=== PATIENT | female | born 1990 ===

== ENCOUNTER 2021-07-09 19:15 | Inpatient (IN) | payer MEDICAID, SELFPAY ==
--- NOTE | ~2021-07-09 | CT_ITS ---
EXAMINATION: CT ABDOMEN AND PELVIS WITH CONTRAST CLINICAL INFORMATION: Cholecystitis on recent ultrasound. COMPARISON: Abdominal ultrasound dated from 09/08/2021. TECHNIQUE: Multidetector volumetric images were obtained from the superior aspect of the liver through the pubic symphysis following administration 85 mL of Omnipaque 350 intravenous contrast. Sagittal and coronal reformatted images were obtained on the technologist's workstation. Oral contrast: No This CT examination was performed using dose optimization techniques as appropriate, variously including the following: *Automated exposure control *Adjustment of mA and/or kV according to patient size (this includes techniques or standardized protocols for targeted exams where dose is matched to indication/reason for exam; i.e. extremities or head) *Use of iterative reconstruction technique DLP: 431 mGy-cm FINDINGS: LUNG BASES: The visualized lung bases are unremarkable. LIVER, GALLBLADDER, AND BILIARY TREE: The liver is normal in size, shape, and attenuation. No focal hepatic lesion or biliary ductal dilatation is present. There are very small stones layering dependently in the fundus (4:186) which are better seen on recent ultrasound. The gallbladder wall is borderline thickened measuring 3 to 4 mm without significant pericholecystic free fluid or fat stranding. PANCREAS: Unremarkable. SPLEEN: Unremarkable. ADRENAL GLANDS: Unremarkable. KIDNEYS AND URETERS: The kidneys are normal in size, shape, and attenuation. No hydronephrosis, hydroureter, or calculi seen. No perinephric stranding. BLADDER: Unremarkable. GASTROINTESTINAL TRACT: The stomach and the small bowel are nondilated. The appendix is not definitely identified, there are; however, no regional inflammatory changes to suspect acute appendicitis. No evidence of active inflammatory bowel changes or bowel obstruction. ABDOMINAL WALL: No significant hernia is appreciated. LYMPH NODES: Normal. VASCULAR: Unremarkable. PELVIC VISCERA: Trace amount of free fluid is likely physiologic. Functional follicles in both ovaries, left on image 452 and right on image 488 of series 4. OSSEOUS STRUCTURES: Unremarkable. CT/CT abdomen pelvis w con IMPRESSION: 1. Gallbladder stones are best visualized on prior ultrasound. As mentioned on this prior ultrasound, there is borderline gallbladder wall thickening but no significant pericholecystic fluid nor fat stranding. Findings remain equivocal for acute cholecystitis and clinical correlation should be obtained. If indicated, further evaluation with a hepatobiliary nuclear medicine study could be performed. 2. No other acute abnormalities to explain the patient's symptoms.
--- NOTE | ~2021-07-09 | US_ITS ---
EXAMINATION: US ABDOMEN LIMITED CLINICAL INFORMATION: Rule out acute cholecystitis COMPARISON: None TECHNIQUE: Real-time imaging of the right upper quadrant abdominal viscera. FINDINGS: PANCREAS: Normal. LIVER: Normal. The liver is normal in size. The liver contour is normal. Parenchymal echogenicity is normal. No focal hepatic lesion. There is no intrahepatic biliary duct dilatation seen. GALLBLADDER: Echogenic gallstones are seen within the gallbladder. Gallbladder wall is mildly thickened to 3-4 mm. No pericholecystic fluid. The patient does report focal tenderness upon imaging of the gallbladder. COMMON BILE DUCT: Normal in caliber measuring 0.5 cm in diameter. RIGHT KIDNEY: Normal. No hydronephrosis. No renal calculi or focal parenchymal lesions. The kidney measures 9.3 cm in maximum dimension. FREE FLUID: None. US/US abdomen limited IMPRESSION: There are gallstones, mild gallbladder wall thickening, and focal tenderness upon imaging of the gallbladder. This constellation of findings is consistent with acute cholecystitis in the appropriate clinical setting.
--- NOTE | ~2021-07-09 | MR_ITS ---
EXAMINATION: MR ABDOMEN WITHOUT CONTRAST CLINICAL INFORMATION: Elevated LFTs and jaundice. COMPARISON: None TECHNIQUE: MR abdomen is performed without gadolinium contrast. 3-D MRCP images were obtained. FINDINGS: LUNG BASES: The visualized lung bases are unremarkable. LIVER, GALLBLADDER, AND BILIARY TREE: The liver is normal in size, smooth in contour, and normal in signal. No focal hepatic lesion is present. The patient is status post recent cholecystectomy with free fluid and stranding in the gallbladder fossa and right upper quadrant which are likely postsurgical. A discrete organized collection is not identified. Evaluation of 3-D MRCP images is extremely limited due to motion. However, accounting for these limitations, no definite choledocholithiasis is identified. There is no biliary ductal dilatation. Susceptibility artifact in the right upper abdominal wall, likely due to air or clips from recent surgery. PANCREAS: Unremarkable. SPLEEN: Unremarkable. ADRENAL GLANDS: Unremarkable. KIDNEYS AND URETERS: The kidneys are normal in size and shape. No hydronephrosis. No perinephric stranding. GASTROINTESTINAL TRACT: No bowel obstruction. ABDOMINAL WALL: No significant hernia is appreciated. LYMPH NODES: No lymphadenopathy. VASCULAR: Unremarkable. OSSEOUS STRUCTURES: Marrow signal normal. MR/MR MRCP IMPRESSION: 1. Free fluid and stranding in the gallbladder fossa and right upper quadrant, likely from recent cholecystectomy. No definite organized or drainable collection at this time. However, if a bile leak or other postsurgical complication is suspected, correlation with a nuclear medicine study or MR with delayed Eovist images is recommended. 2. No biliary ductal dilatation or choledocholithiasis. This result was discussed with Dr Celaya at 07/11/2021 7:34 PM and it was ascertained that the content of the report was understood at the time of direct communication.
[2021-07-09 19:59] VITALS: BP 100/59; PULSE 84; RESP 17; TEMP 36.2; O2SAT 98; BMI 23.7
[2021-07-09 20:13] LABS: MANUAL DIFF FLAG NO
[2021-07-09 20:15] LABS: Appearance Urine HAZY; Basophils Percent Auto 0.1 % (0-2); Color Urine YELLOW; Eosinophils Absolute Auto 0.1 X10*3/uL (0.0-0.4); Eosinophils Percent Auto 0.7 % (0-4); Glucose Urine UA NEG (NEG); Hematocrit 40.9 % (37.0-47.0); Hemoglobin 13.5 g/dl (12.0-16.0); Imm Gran Abs Auto 0.04 X10*3/uL (0.00-0.03); Imm Gran Pct Auto 0.3 % (0.0-0.4); Leukocyte Esterase Urine 1+ (NEG); Lymphocytes Absolute Auto 2.4 X10*3/uL (1.2-4.9); Lymphocytes Percent Auto 17.4 % (20-40); Mean Corpuscular Hemoglobin 32.5 pg (27.0-33.0); Mean Corpuscular Volume 98.6 fL (80.0-98.0); Mean Platelet Volume 10.6 fL (9.4-12.3); Monocytes Percent Auto 7.3 % (2-11); Neutrophils Absolute Auto 10.2 x10*3/uL (2.0-8.3); Neutrophils Percent Auto 74.2 % (45-73); Nitrite Urine NEG (NEG); PH 7.5 (5.0-8.0); Platelet Count 220 X10*3/uL (160-400); Red Blood Count 4.15 X10*6/uL (4.20-5.50); Red Cell Distribution Width 12.9 % (11.0-16.0); UACC Culture Trigger YES; Urine Blood NEG (NEG); Urine Ketones NEG (NEG); Urine Protein NEG (NEG-TRACE); White Blood Count 13.8 X10*3/uL (4.8-10.8)
[2021-07-09 20:21] LABS: RBC Urine 0 /HPF (0); Squamous Epithelial Cell Urine 1+ /LPF
[2021-07-09 20:22] LABS: Amorphous Sediment Urine 2+ /LPF; Bacteria Urine TRACE /LPF
[2021-07-09 20:35] LABS: Alanine Aminotransferase 231 U/L (0-31); Albumin Level 4.2 g/dL (3.5-5.0); Alkaline Phosphatase 204 U/L (39-117); Anion Gap 12 (12-20); Aspartate Amino Transferase 299 U/L (5-31); Bilirubin Total 0.9 mg/dL (0.0-1.0); Blood Urea Nitrogen 14 mg/dL (9-16); Calcium 9.8 mg/dL (8.4-10.2); Carbon Dioxide 30 mmol/L (22-29); Chloride 101 mmol/L (96-108); Creatinine Clr Calc Pharmacy 89.2; Estimated Glomerular Filt Rate > 60; Glucose Random 160 mg/dL (60-115); Potassium 3.6 mmol/L (3.3-5.1); Sodium 139 mmol/L (135-145); Total Protein 7.1 g/dL (6.5-8.0)
--- NOTE | 2021-07-09 23:16 | ED_ITS ---
HPI - Abdominal Pain General Chief Complaint: Abdominal Pain Stated Complaint: Stomach pain Time Seen by Provider: 07/09/21 22:05 Source: patient Mode of arrival: ambulatory Limitations: language barrier History of Present Illness HPI narrative: 30-year-old female presents with approximately 24 hours of abdominal pain, nausea, and poor p.o. intake. Pain started in the right upper quadrant and radiates to the abdomen diffusely. MD elicited complaint: abdominal pain Pertinent past history: none Onset (ago): day(s) (1) Pain Consistency: constant Location: diffuse and RUQ Severity: severe Pain scale (0-10): 8 Quality: aching Radiation: none Exacerbating factors: eating and movement Relieving factors: nothing Associated symptoms: nausea, anorexia and other (Fatigue) Related Data Patient : No Allergies Allergy/AdvReac Type Severity Reaction Status Date / Time No Known Allergies Allergy Verified 07/09/21 20:02 Review of Systems Review of Systems Constitutional: No Fever, No Chills ENT/Mouth: No Ear Pain, No Hoarseness, No sore throat Eyes: No Eye Pain, No Swelling, No Redness, No Foreign Body Cardiovascular: No Chest Pain, No SOB Respiratory: No Cough, No Dyspnea Gastrointestinal: Positive Nausea, No Vomiting, No Diarrhea, positive abdominal Pain Genitourinary: No Dysuria, No Hematuria Musculoskeletal: No joint pain, No Myalgias, No Joint Swelling Skin: No Skin lacerations, No rash Neuro: No Weakness, No Numbness, No Paresthesias, No Loss of Consciousness, No Dizziness, No Headache Psych: No Anxiety/Panic, No Depression Heme/Lymph: no easy bruising, no Lymphadenopathy Endocrine: No Polyuria, No Polydipsia Yes all other systems are reviewed and are negative [facility] Past Medical History Attestation statement: The following information was validated with the patient. Source: old records reviewed Social History Social History Advance Directives: No Advance Directives Information Provided: Yes Patient : No Physical Exam ED Vital Signs: Vital Signs - 24 hr 07/09/21 19:59 07/09/21 23:26 07/10/21 00:05 Temperature 97.2 F 98.2 F Pulse Rate 84 76 70 Respiratory Rate 17 17 18 Blood Pressure 100/59 L 100/60 95/61 Pulse Oximetry 98 98 99 BMI result Body Mass Index 23.7 Appearance: Alert. Oriented X3. Moderate distress. Eyes: Pupils equal, round and reactive to light. Sclera nonicteric. ENT: Pharynx normal. Moist mucous membranes. Neck: Normal inspection. Neck supple. CVS: Normal heart rate and rhythm. Pulses normal. Respiratory: No respiratory distress. Breath sounds normal. Abdomen: Soft and positive Mata's. Negative McBurney's. No rigidity or distention noted. Diffusely tender. Skin: Skin warm and dry. Normal skin color. Normal skin turgor. Extremities: No lower extremity edema. Gait well-balanced well coordinated. Neuro: No motor deficit. No sensory deficit. Cranial nerves 2-12 intact. Course Course Course Narrative: 30-year-old female presents with 1 day of abdominal pain, nausea and poor p.o. intake. Labs and abdominal ultrasound completed while patient was in the doctors hospital department waiting room, white count elevated at 13.8, AST 299, ALT 231, alk-phos 204. Urinalysis she indicates leukocyte esterase and white cell count. Abdominal ultrasound indicates cholecystitis without obstructing gallstones. Will order CT scan of abdomen pelvis, add lipase, EKG, and urine . Will order lactic and cultures. Will provide pain management with morphine, antiemetics Zofran, Zosyn IV. Patient will be NPO. 00:[address] Gamble, plan of care is to admit for surgery. Consultations Consultation #1: Tye Time: 00:16 MDM - Abdominal Pain MDM Narrative Medical decision making narrative: Cholecystitis Differential Diagnosis Differential diagnosis: Likely abdominal pain, calculus of kidney and pancreatitis Medical Records Attestation: I reviewed the patient's medical records. Lab Data Attestation: I reviewed the patient's lab results. Result diagrams: 07/09/21 20:09 07/09/21 20:09 Labs: Lab Results 07/09/21 07/09/21 07/09/21 Range/Units 20:09 20:09 20:09 WBC 13.8 H (4.8-10.8) X10*3/uL RBC 4.15 L (4.20-5.50) X10*6/uL Hgb 13.5 (12.0-16.0) g/dl Hct 40.9 (37.0-47.0) % MCV 98.6 H (80.0-98.0) fL MCH 32.5 (27.0-33.0) pg MCHC 33.0 (31.0-35.0) g/dl RDW 12.9 (11.0-16.0) % Plt Count 220 (160-400) X10*3/uL MPV 10.6 (9.4-12.3) fL Immature Gran % (Auto) 0.3 (0.0-0.4) % Neut % (Auto) 74.2 H (45-73) % Lymph % (Auto) 17.4 L (20-40) % [place] % (Auto) 7.3 (2-11) % Eos % (Auto) 0.7 (0-4) % Baso % (Auto) 0.1 (0-2) % Lymph # (Auto) 2.4 (1.2-4.9) X10*3/uL [place] # (Auto) 1.0 (0.1-1.2) X10*3/uL Eos # (Auto) 0.1 (0.0-0.4) X10*3/uL Baso # (Auto) 0.0 (0.0-0.2) X10*3/uL Abs Immat Gran (auto) 0.04 H (0.00-0.03) X10*3/uL Absolute Neuts (auto) 10.2 H (2.0-8.3) x10*3/uL Absolute Nucleated RBC 0.000 (0.0-0.012) X10*3/uL Nucleated RBC % (auto) 0.0 (0.0-0.2) /100WBC Sodium 139 (135-145) mmol/L Potassium 3.6 (3.3-5.1) mmol/L Chloride 101 (96-108) mmol/L Carbon Dioxide 30 H (22-29) mmol/L Anion Gap 12 (12-20) BUN 14 (9-16) mg/dL Creatinine 0.83 (0.5-1.4) mg/dL Estim Creat Clear Calc 89.2 Estimated GFR > 60 Random Glucose 160 H (60-115) mg/dL Calcium 9.8 (8.4-10.2) mg/dL Total Bilirubin 0.9 (0.0-1.0) mg/dL AST 299 H (5-31) U/L ALT 231 H (0-31) U/L Alkaline Phosphatase 204 H (39-117) U/L Total Protein 7.1 (6.5-8.0) g/dL Albumin 4.2 (3.5-5.0) g/dL Lipase 26 (8-78) U/L Urine Color YELLOW Urine Appearance HAZY Urine pH 7.5 (5.0-8.0) Ur Specific [place] 1.010 (1.005-1.025) Urine Protein NEG (NEG-TRACE) MG/DL Urine Glucose (UA) NEG (NEG) MG/DL Urine Ketones NEG (NEG) MG/DL Urine Blood NEG (NEG) Urine Nitrite NEG (NEG) Ur Leukocyte Esterase 1+ H (NEG) Urine RBC 0 (0) /HPF Urine WBC 5-9 H (0-4) /HPF Ur Squamous Epith Cells 1+ /LPF Amorphous Sediment 2+ /LPF Urine Bacteria TRACE /LPF COVID-19 (ARTIE) (Negative) COVID-19 Clin Com 07/09/21 Range/Units 23:44 WBC (4.8-10.8) X10*3/uL RBC (4.20-5.50) X10*6/uL Hgb (12.0-16.0) g/dl Hct (37.0-47.0) % MCV (80.0-98.0) fL MCH (27.0-33.0) pg MCHC (31.0-35.0) g/dl RDW (11.0-16.0) % Plt Count (160-400) X10*3/uL MPV (9.4-12.3) fL Immature Gran % (Auto) (0.0-0.4) % Neut % (Auto) (45-73) % Lymph % (Auto) (20-40) % [place] % (Auto) (2-11) % Eos % (Auto) (0-4) % Baso % (Auto) (0-2) % Lymph # (Auto) (1.2-4.9) X10*3/uL [place] # (Auto) (0.1-1.2) X10*3/uL Eos # (Auto) (0.0-0.4) X10*3/uL Baso # (Auto) (0.0-0.2) X10*3/uL Abs Immat Gran (auto) (0.00-0.03) X10*3/uL Absolute Neuts (auto) (2.0-8.3) x10*3/uL Absolute Nucleated RBC (0.0-0.012) X10*3/uL Nucleated RBC % (auto) (0.0-0.2) /100WBC Sodium (135-145) mmol/L Potassium (3.3-5.1) mmol/L Chloride (96-108) mmol/L Carbon Dioxide (22-29) mmol/L Anion Gap (12-20) BUN (9-16) mg/dL Creatinine (0.5-1.4) mg/dL Estim Creat Clear Calc Estimated GFR Random Glucose (60-115) mg/dL Calcium (8.4-10.2) mg/dL Total Bilirubin (0.0-1.0) mg/dL AST (5-31) U/L ALT (0-31) U/L Alkaline Phosphatase (39-117) U/L Total Protein (6.5-8.0) g/dL Albumin (3.5-5.0) g/dL Lipase (8-78) U/L Urine Color Urine Appearance Urine pH (5.0-8.0) Ur Specific [place] (1.005-1.025) Urine Protein (NEG-TRACE) MG/DL Urine Glucose (UA) (NEG) MG/DL Urine Ketones (NEG) MG/DL Urine Blood (NEG) Urine Nitrite (NEG) Ur Leukocyte Esterase (NEG) Urine RBC (0) /HPF Urine WBC (0-4) /HPF Ur Squamous Epith Cells /LPF Amorphous Sediment /LPF Urine Bacteria /LPF COVID-19 (ARTIE) Negative (Negative) COVID-19 Clin Com See Note Imaging Data Abdominal ultrasound: Attestation: I personally reviewed and interpreted this imaging study as follows: Radiologist's impression: EXAMINATION: US ABDOMEN LIMITED CLINICAL INFORMATION: Rule out acute cholecystitis COMPARISON: None TECHNIQUE: Real-time imaging of the right upper quadrant abdominal viscera. FINDINGS: PANCREAS: Normal. LIVER: Normal. The liver is normal in size. The liver contour is normal. Parenchymal echogenicity is normal. No focal hepatic lesion. There is no intrahepatic biliary duct dilatation seen. GALLBLADDER: Echogenic gallstones are seen within the gallbladder. Gallbladder wall is mildly thickened to 3-4 mm. No pericholecystic fluid. The patient does report focal tenderness upon imaging of the gallbladder. COMMON BILE DUCT: Normal in caliber measuring 0.5 cm in diameter. RIGHT KIDNEY: Normal. No hydronephrosis. No renal calculi or focal parenchymal lesions. The kidney measures 9.3 cm in maximum dimension. FREE FLUID: None. US/US abdomen limited IMPRESSION: There are gallstones, mild gallbladder wall thickening, and focal tenderness upon imaging of the gallbladder. This constellation of findings is consistent with acute cholecystitis in the appropriate clinical setting. ECG Data Attestation: I personally reviewed and interpreted this ECG as follows: ECG interpretation date: 07/09/21 ECG interpretation time: 23:30 Prior ECG tracings: not available for review Interpretation: Vent. rate 75 BPM AK interval 110 ms QRS duration 82 ms QT/QTc 374/417 ms P-R-T axes 49 65 54 Sinus rhythm with short AK Otherwise normal ECG No previous ECGs available Discharge Plan Discharge Clinical Impression: Acute cholecystitis Patient Disposition: Admitted As Inpatient
--- NOTE | 2021-07-09 23:22 | ECG_ITS ---
Test Reason : ABD PAIN Blood Pressure : / mmHG Vent. Rate : 075 BPM Atrial Rate : 075 BPM P-R Int : 110 ms QRS Dur : 082 ms QT Int : 374 ms P-R-T Axes : 049 065 054 degrees QTc Int : 417 ms Sinus rhythm with short VT Otherwise normal ECG No previous ECGs available Referred By: Ketty Staton Electronically Signed By:SALVATORE CUBA MD
[2021-07-09 23:26] VITALS: BP 100/60; PULSE 76; RESP 17; TEMP 36.8; O2SAT 98
[2021-07-09] MEDS: 0.9 % Sodium Chloride 1,000 ML 999 ML IVCONT (23:49)
[2021-07-09] MEDS: ondansetron HCL 4 MG/2 ML VIAL IVPUSH (23:49)
[2021-07-09] MEDS: Morphine Sulfate 4 MG/ML CARTRIDGE IVPUSH (23:49)
[2021-07-09] MEDS: Piperacillin Sodium/Tazobactam 3.375 GM in 0.9 % Sodium Chloride 50 ML IV (23:52)
[2021-07-09 23:55] LABS: Lipase 26 U/L (8-78)
[2021-07-10] VITALS (17 sets, daily range): BP systolic 89–105; BP diastolic 43–65; PULSE 50–98; RESP 13–20; TEMP 36.2–36.9; O2SAT 96–99
[2021-07-10 00:13] LABS: COVID-19 Test Negative (Negative)
[2021-07-10 00:25] LABS: Lactic Acid 1.1 mmol/L (0.5-2.0)
[2021-07-10] MEDS: iohexoL 350 MG/ML 100 ML INFUS..BTL 85 ML IV (00:27)
[2021-07-10 00:49] LABS: UPreg QC Valid YES; Urine Pregnancy NEGATIVE (NEGATIVE)
[2021-07-10] MEDS: Dextrose 5 % and 0.9 % NaCl 1,000 ML 100 ML IVCONT ×3 (02:02→23:37)
[2021-07-10 06:05] LABS: Baso%MD 0.1 %; Eos%MD 1.3 %; Hematocrit 36.6 % (37.0-47.0); Hemoglobin 11.8 g/dl (12.0-16.0); IG%MD 0.3 %; Lymph%MD 23.4 %; Mean Corpuscular HGB Conc 32.2 g/dl (31.0-35.0); Mean Corpuscular Hemoglobin 32.4 pg (27.0-33.0); Mean Corpuscular Volume 100.5 fL (80.0-98.0); Mean Platelet Volume 10.9 fL (9.4-12.3); Mono%MD 6.6 %; Neut%MD 68.3 %; Platelet Count 190 X10*3/uL (160-400); Red Blood Count 3.64 X10*6/uL (4.20-5.50); White Blood Count 9.4 X10*3/uL (4.8-10.8)
[2021-07-10 06:13] LABS: Hematocrit 37.4 % (37.0-47.0); Hemoglobin 11.9 g/dl (12.0-16.0); Mean Corpuscular HGB Conc 31.8 g/dl (31.0-35.0); Mean Corpuscular Hemoglobin 31.8 pg (27.0-33.0); Mean Platelet Volume 10.9 fL (9.4-12.3); Platelet Count 206 X10*3/uL (160-400); Red Blood Count 3.74 X10*6/uL (4.20-5.50); Red Cell Distribution Width 13.1 % (11.0-16.0); White Blood Count 9.4 X10*3/uL (4.8-10.8)
[2021-07-10 06:25] LABS: Atypical Lymph Absolute Manual 0.1 x10*3/uL; Atypical Lymphs Percent Manual 1 % (0-6); Band Neutrophils Percent 0 % (3-5); Eosinophils Absolute Manual 0.3 X10*3/uL (0.0-0.4); Eosinophils Percent Manual 3 % (0-4); Lymphocytes Absolute Manual 1.5 X10*3/uL (1.2-4.9); Lymphocytes Percent Manual 16 % (20-40); Macrocytosis 1+ (5-14) /OIF; Monocytes Absolute Manual 0.3 X10*3/uL (0.1-1.2); Monocytes Percent Manual 3 % (2-11); Neutrophils Absolute Manual 7.2 X10*3/uL (2.0-8.3); Neutrophils Percent Manual 77 % (45-73); RBC Morphology NOTED
[2021-07-10 06:26] LABS: Large Platelet PRESENT; Platelet Estimate NORMAL (NORMAL); Platelet Morphology Comment NOTED
[2021-07-10 06:51] LABS: Alanine Aminotransferase 605 U/L (0-31); Albumin Level 3.3 g/dL (3.5-5.0); Alkaline Phosphatase 179 U/L (39-117); Anion Gap 9 (12-20); Aspartate Amino Transferase 732 U/L (5-31); Bilirubin Total 1.8 mg/dL (0.0-1.0); Blood Urea Nitrogen 8 mg/dL (9-16); Calcium 8.6 mg/dL (8.4-10.2); Carbon Dioxide 27 mmol/L (22-29); Chloride 105 mmol/L (96-108); Estimated Glomerular Filt Rate > 60; Glucose Random 181 mg/dL (60-115); Potassium 4.1 mmol/L (3.3-5.1); Sodium 137 mmol/L (135-145); Total Protein 5.6 g/dL (6.5-8.0)
--- NOTE | 2021-07-10 08:23 | PHA.MEDREC ---
Pharmacy Consult ? Medication Reconciliation Pharmacy has completed the medication reconciliation. Patient takes no medications at home. Swetha Short, TaniaD
--- NOTE | 2021-07-10 08:40 | PM.HPGS ---
History of Present Illness History of Present Illness Date of Service: 07/10/21 Chief complaint: Cholecystits Narrative: Cheryl Middleton is a 30 year old female Presenting with complaints of abdominal pain in the epigastrium right upper quadrant. The pain began 24 hours prior and was associated with nausea without vomiting. Also reports anorexia she denies a prior history of similar symptoms. Does of the persistence of the pain she presented to the emergency department for further evaluation. In the emergency department she was noted to have a WBC of 13.8 . Transaminases and alkaline phosphatase were also elevated although the bilirubin was normal. Ultrasound of the gallbladder revealed gallstones within the gallbladder with mild wall thickening and tenderness on palpation of the gallbladder suggestive of acute cholecystitis. . Patient is admitted to the surgical service for further management of this acute cholecystitis. Review of Systems Constitutional: Constitutional: Denies chills, Denies fever(s), Denies headache(s) and Reports poor appetite ENT: Denies dizziness and Denies headache(s) Cardiovascular: Cardiovascular: Denies chest pain, Denies rapid heart rate, Denies palpitations and Denies slow heart rate Respiratory: Respiratory: Denies chest congestion, Denies cough, Denies pain on inspiration and Denies wheezing Gastrointestinal: Gastrointestinal: Reports abdominal pain, Denies bloating, Denies change in stool character, Denies constipation, Denies diarrhea, Reports nausea, Denies vomiting and Denies hematemesis Musculoskeletal: Musculoskeletal: Denies back pain, Denies arthralgias, Denies joint swelling and Denies numbness Integumentary/Breasts: Skin/Breast: Denies change in pigmentation, Denies erythema and Denies rash Neurologic: Denies dizziness, Denies headache(s) and Denies numbness Psychiatric: Psychiatric: Denies anxiety and Denies depression Endocrine: Endocrine: Denies palpitations Hematologic/Lymphatic: Hematologic/Lymphatic: Denies easy bleeding, Denies easy bruising and Denies lymphadenopathy Allergic/Immunologic: Allergic/Immunologic: Denies wheezing PMFSH Social History Social History Advance Directives: No Advance Directives Information Provided: Yes Patient : No Meds Allergies Allergy/AdvReac Type Severity Reaction Status Date / Time No Known Allergies Allergy Verified 07/09/21 20:02 Active Medications: Current Medications Dextrose/Sodium Chloride (D5ns) 1,000 mls @ 100 mls/hr IVCONT .Q10H [facility] Last Admin: 07/10/21 02:02 Dose: 100 mls/hr Documented by: Piperacillin Sod/Tazobactam (Sod 3.375 gm/ Sodium Chloride) 50 mls @ 100 mls/hr IV Q6H [facility] Ketorolac Tromethamine (Ketorolac Tromethamine 30 Mg/Ml Vial) 30 mg IVPUSH QID PRN PRN Reason: Pain, Severe (Pain Scale 7-10) Sodium Chloride (0.9 % Sodium Chloride Flush 3 Ml Syringe) 3 ml IVFLUSH QSHIFT [facility] Home Medications Medication Instructions Recorded Confirmed Last Taken Type No Known Home Meds 07/10/21 07/10/21 Unknown History Physical Exam Vital Signs: Vital Signs: Last Vital Signs Temp 98.2 F 07/09/21 23:26 Pulse 82 07/10/21 06:57 Resp 14 07/10/21 06:57 BP 99/51 L 07/10/21 06:57 Pulse Ox 98 07/10/21 06:57 BMI result Body Mass Index 23.7 Const: General: cooperative, comfortable and well developed Nutritional Appearance: well nourished Orientation/consciousness: patient oriented x3 Eyes: Sclerae: sclerae normal EOM: EOMs intact bilaterally Neck: Neck: Yes normal visual inspection Resp: Effort & Inspection: normal respiratory effort, no cough, no respiratory distress and no stridor Cardio: Jugular venous distension: no JVD GI: Inspection: Yes normal to inspection Palpation (GI): Soft to palpation, Tenderness to palpation present (GI) in the RUQ and Mata's sign positive, no guarding, not rigid, no hernias and No Rebound tenderness present Percussion: Yes normal to percussion Auscultation: normal bowel sounds Rectal Exam - Female: deferred Skin: General skin exam: dry skin Rashes: no rashes Neuro: General: patient oriented x3 and no focal motor deficits Extrem: General: Yes full ROM and Yes no clubbing, cyanosis or edema Psych: Appearance: grossly normal Results Results Labs: Short CBC 07/09/21 07/10/21 07/10/21 Range/Units 20:09 05:41 05:41 WBC 13.8 H 9.4 9.4 (4.8-10.8) X10*3/uL Hgb 13.5 11.9 L 11.8 L (12.0-16.0) g/dl Hct 40.9 37.4 36.6 L (37.0-47.0) % Plt Count 220 206 190 (160-400) X10*3/uL BMP 07/09/21 07/10/21 20:09 05:41 Sodium 139 137 Potassium 3.6 4.1 Chloride 101 105 Carbon Dioxide 30 H 27 BUN 14 8 L Creatinine 0.83 0.74 Calcium 9.8 8.6 D Liver Function 07/09/21 07/10/21 Range/Units 20:09 05:41 Total Bilirubin 0.9 1.8 H (0.0-1.0) mg/dL AST 299 H 732 H (5-31) U/L ALT 231 H 605 H (0-31) U/L Alkaline Phosphatase 204 H 179 H (39-117) U/L Albumin 4.2 3.3 L D (3.5-5.0) g/dL Urine 07/09/21 07/09/21 Range/Units 20:09 20:09 Urine Color YELLOW Urine Appearance HAZY Urine pH 7.5 (5.0-8.0) Ur Specific [place] 1.010 (1.005-1.025) Urine Protein NEG (NEG-TRACE) MG/DL Urine Glucose (UA) NEG (NEG) MG/DL Urine Test NEGATIVE (NEGATIVE) Assessment and Plan (1) Acute cholecystitis: Status: Acute Plan 30-year-old female patient presenting with complaints of abdominal pain in the right upper quadrant and epigastrium. Workup revealed an elevated WBC, elevated liver enzymes, and ultrasound revealed gallstones with thickened gallbladder wall and a sonographic Mata sign. Findings are suggestive of acute cholecystitis. Examination the patient is tender in the right upper quadrant with a weakly positive Mata sign. We discussed treatment options including laparoscopic or possible open cholecystectomy. After discussion of the procedure, risks, and alternatives, she consents to a laparoscopic or possible open cholecystectomy. She will be added onto the operative schedule for today. Quality Stroke Does the patient have a stroke diagnosis?: No VTE Prior VTE?: No VTE Risk Level:: Surgical - low VTE Device Contraindication: N/A - Device Ordered VTE Drug Contraindication: Treatment Not Indicated Procedures Date of Service Date of Service: 07/10/21
[2021-07-10] MEDS: Piperacillin Sodium/Tazobactam 3.375 GM in 0.9 % Sodium Chloride 50 ML IV (09:09)
--- NOTE | 2021-07-10 09:11 | PC.NURSE ---
Pt was asleep at start of shift. Family at bedside. Pt now awake, up to BR with steady gait. denies abd pain. is aware of NPO status. no n/v/d
[2021-07-10 09:15] LABS: Glucose, Whole Blood 155 mg/dL (60-115)
--- NOTE | 2021-07-10 09:43 | PC.NURSE ---
report to imani from short stay. last PO was yesterday am per patient. PCT in to help pt undress fully.
--- NOTE | 2021-07-10 11:51 | MHC.CM.PN ---
Attempted to meet with patient in regards to discharge planning. Patient currently in short stay. Will attempt to meet again. Continue to monitor for d/c needs.
--- NOTE | 2021-07-10 12:37 | P.OP_ITS ---
Operative Note Operative Note Date of Service: 07/10/21 Narrative: Preoperative diagnosis: acute cholecystitis Postoperative diagnosis: Same Procedure: Laparoscopic cholecystectomy Surgeon: Phoenix Celaya MD Pediatric Nurse Practitioner: JES Guzman Anesthesia: General endotracheal Indications for procedure: 30-year-old female patient presenting with complaints of epigastric and right upper quadrant abdominal pain of 24 hours duration found to have gallstones and gallbladder wall thickening on ultrasound. Operative findings: Acute cholecystitis with cholelithiasis Specimen: gallbladder Estimated blood loss: 2 mL Complications: none Procedure details: Patient was brought to the OR and placed in a supine position. After administering general anesthesia the patient's abdomen was prepped with ChloraPrep and draped in a sterile fashion. Local anesthesia consisting of 0.5% Sensorcaine without epinephrine was infiltrated in a periumbilical region. A 5 mm incision was made above the umbilicus in a transverse fashion. The Veress needle was then inserted while elevating abdominal cavity with towel clips. After positive drop test the abdomen was insufflated to a pressure of 15 mm of mercury. The Veress needle was then removed and a 5 mm trocar inserted. The camera was inserted in the abdomen explored. A 12 mm trocar was then placed in the epigastrium and two 5 mm trocars placed in the right upper quadrant. The patient was placed in reverse Trendelenburg positioning and rotated to the left. The gallbladder was grasped with the fundus and retracted cephalad.. The infundibulum was then grasped and retracted away from the liver bed. The Dolphin dissected was then used to dissect the peritoneum off the infundibulum to reveal the junction with the cystic duct. Cystic artery was noted slightly medial and posterior to the cystic duct. After obtaining a critical view the cystic duct was doubly clipped and divided. The cystic artery was then doubly clipped and divided. The gallbladder was then dissected off the liver bed using electrocautery with an L hook. Hemostasis was assured all times using the electrocautery. When the gallbladder is completely dissected off the liver bed was placed in an Endo- Catch bag and brought out through the epigastric incision. The gallbladder was sent to pathology for further examination. The abdomen was then re-examined. The liver bed was irrigated and suctioned dry. No bleeding or bile leak could be identified. CO2 was then evacuated and all trocars removed. Fascia was closed at the epigastric incision using a [id number] 0 Polysorb suture. Skin was closed in all incisions using a s ubcuticular 4 0 Polysorb suture. Sterile dressings consisting of Steri-Strips, 2 x 2 gauze, and Tegaderm were then applied. The patient tolerated the procedure well. Sponge instrument and needle counts reported as correct. The patient was transferred to PACU in stable condition.
[2021-07-10] MEDS: fentaNYL citrate/PF 100 MCG/2 ML VIAL 50 MCG IVPUSH (13:18)
[2021-07-10] MEDS: Ketorolac Tromethamine 30 MG/ML VIAL 15 MG IVPUSH (13:29)
[2021-07-10] MEDS: HYDROmorphone HCl 0.5 MG/0.5 ML SYRINGE 0.25 MG IVPUSH (13:35)
[2021-07-10] MEDS: 0.9 % Sodium Chloride Flush 3 ML SYRINGE IVFLUSH (15:02)
[2021-07-10] MEDS: ondansetron HCL 4 MG/2 ML VIAL IVPUSH (19:34)
[2021-07-10] MEDS: oxyCODONE HCl Immed Release 5 MG TABLET PO (22:25)
[2021-07-11 06:01] LABS: MANUAL DIFF FLAG NO
[2021-07-11 06:07] LABS: Basophils Percent Auto 0.1 % (0-2); Eosinophils Percent Auto 0.1 % (0-4); Hematocrit 35.7 % (37.0-47.0); Hemoglobin 11.5 g/dl (12.0-16.0); Imm Gran Abs Auto 0.05 X10*3/uL (0.00-0.03); Imm Gran Pct Auto 0.4 % (0.0-0.4); Lymphocytes Absolute Auto 1.7 X10*3/uL (1.2-4.9); Lymphocytes Percent Auto 13.6 % (20-40); Mean Corpuscular HGB Conc 32.2 g/dl (31.0-35.0); Mean Corpuscular Hemoglobin 32.4 pg (27.0-33.0); Mean Corpuscular Volume 100.6 fL (80.0-98.0); Mean Platelet Volume 11.2 fL (9.4-12.3); Monocytes Absolute Auto 0.8 X10*3/uL (0.1-1.2); Monocytes Percent Auto 6.5 % (2-11); Neutrophils Absolute Auto 9.7 x10*3/uL (2.0-8.3); Neutrophils Percent Auto 79.3 % (45-73); Platelet Count 193 X10*3/uL (160-400); Red Blood Count 3.55 X10*6/uL (4.20-5.50); Red Cell Distribution Width 13.3 % (11.0-16.0); White Blood Count 12.3 X10*3/uL (4.8-10.8)
[2021-07-11 06:28] LABS: Alanine Aminotransferase 503 U/L (0-31); Alkaline Phosphatase 178 U/L (39-117); Aspartate Amino Transferase 278 U/L (5-31); Bilirubin Total 2.8 mg/dL (0.0-1.0); Total Protein 5.2 g/dL (6.5-8.0)
[2021-07-11 07:02] VITALS: BP 104/67; PULSE 75; RESP 18; TEMP 36.9; O2SAT 97
--- NOTE | 2021-07-11 09:15 | HO.POSTANES ---
Post Anesthesia Evaluation Post Anesthesia Evaluation Vital Signs: Vital Signs Temp Pulse Resp BP Pulse Ox 07/11/21 07:02 98.4 F 75 18 104/67 97 07/10/21 23:17 98.3 F 78 14 93/57 L 98 Anesthesia: General Endotracheal-GETA Mental Status: Awake Pain Control: Satisfactory Nausea/Vomiting: None Hydration: Adequate Anesthesia-Related Issues: No Anes. Related Issues
[2021-07-11] MEDS: ondansetron HCL 4 MG/2 ML VIAL IVPUSH (09:17)
[2021-07-11] MEDS: Ketorolac Tromethamine 30 MG/ML VIAL IVPUSH ×2 (09:17→19:51)
[2021-07-11] MEDS: Dextrose 5 % and 0.9 % NaCl 1,000 ML 100 ML IVCONT (09:18)
--- NOTE | 2021-07-11 09:27 | PM.PNGS ---
Subjective Subjective Date of Service: 07/11/21 <Marline Weldon PA-C - Last Filed: 07/11/21 09:31> 07/11/21 <Phoenix Celaya MD - Last Filed: 07/11/21 13:16> Interval history: [place] ok last night and was able to tolerate solid diet but has heartburn and nausea this morning. Does not feel like eating. Has some pain at incision sites but comfortable. OOB and ambulating to bathroom. <Marline Weldon PA-C - Last Filed: 07/11/21 09:31> Physical Exam Vital Signs: Vital Signs: Last Vital Signs Temp 98.4 F 07/11/21 07:02 Pulse 75 07/11/21 07:02 Resp 18 07/11/21 07:02 BP 104/67 07/11/21 07:02 Pulse Ox 97 07/11/21 07:02 BMI result Body Mass Index 23.7 <Marline Weldon PA-C - Last Filed: 07/11/21 09:31> Const: General: comfortable, no acute distress and alert <Marline Weldon PA-C - Last Filed: 07/11/21 09:31> Orientation/consciousness: patient oriented x3 <BUCK Guzman Last Filed: 07/11/21 09:31> Resp: Effort & Inspection: normal respiratory effort <Marline Weldon PA-C - Last Filed: 07/11/21 09:31> GI: Inspection: No distended and Yes incision (dressings c/d/i) <Marline Weldon PA-C - Last Filed: 07/11/21 09:31> Palpation (GI): Soft to palpation, Tenderness to palpation present (GI) (mild, incisional), no guarding and not rigid <Marline Weldon PA-C - Last Filed: 07/11/21 09:31> Skin: General skin exam: no rashes or lesions noted <BUCK Guzman Last Filed: 07/11/21 09:31> Neuro: General: patient oriented x3 <BUCK Guzman Last Filed: 07/11/21 09:31> Extrem: General: Yes no clubbing, cyanosis or edema <Marline Weldon PA-C - Last Filed: 07/11/21 09:31> Objective Data Active Medications Hydromorphone HCl (Hydromorphone Hcl 0.5 Mg/0.5 Ml Syringe) 0.25 mg IVPUSH Q5M PRN; Protocol PRN Reason: Pain, Severe (Pain Scale 7-10) Last Admin: 07/10/21 13:35 Dose: 0.25 mg Documented by: EARL Dextrose/Sodium Chloride (D5ns) 1,000 mls @ 100 mls/hr IVCONT .Q10H [facility] Last Admin: 07/11/21 09:18 Dose: 100 mls/hr Documented by: BROOKLYNN Ketorolac Tromethamine (Ketorolac Tromethamine 30 Mg/Ml Vial) 30 mg IVPUSH QID PRN PRN Reason: Pain, Severe (Pain Scale 7-10) Last Admin: 07/11/21 09:17 Dose: 30 mg Documented by: BROOKLYNN Morphine Sulfate (Morphine Sulfate 2 Mg/Ml Cartridge) 2 mg IVPUSH Q4H PRN; Protocol PRN Reason: Pain, Severe (Pain Scale 7-10) Ondansetron HCl (Ondansetron Hcl 4 Mg/2 Ml Vial) 4 mg IVPUSH ONCE PRN PRN Reason: Nausea and Vomiting Ondansetron HCl (Ondansetron Hcl 4 Mg/2 Ml Vial) 4 mg IVPUSH Q8H PRN PRN Reason: Nausea and Vomiting Last Admin: 07/11/21 09:17 Dose: 4 mg Documented by: BROOKLYNN Oxycodone HCl (Oxycodone Hcl Immed Release 5 Mg Tablet) 5 mg PO Q6H PRN PRN Reason: Pain, Moderate (Pain Scale 4-6 Last Admin: 07/10/21 22:25 Dose: 5 mg Documented by: SHAJI Sodium Chloride (0.9 % Sodium Chloride Flush 3 Ml Syringe) [facility] Last Admin: 07/11/21 09:17 Dose: Not Given Documented by: BROOKLYNN Non-Admin Reason: IV Running Zolpidem Tartrate (Zolpidem Tartrate 5 Mg Tablet) 5 mg PO BEDTIME PRN PRN Reason: Insomnia <Marline Weldon PA-C - Last Filed: 07/11/21 09:31> Labs CBC & Chem 7: : 07/11/21 05:35 07/10/21 05:41 <Marline Weldon PA-C - Last Filed: 07/11/21 09:31> Labs: Laboratory Results - last 24 hr 07/09/21 07/11/21 07/11/21 20:09 05:35 05:35 MCV 100.6 H MCH 32.4 MCHC 32.2 RDW 13.3 Plt Count 193 MPV 11.2 Immature Gran % (Auto) 0.4 Neut % (Auto) 79.3 H Lymph % (Auto) 13.6 L Catron % (Auto) 6.5 Eos % (Auto) 0.1 Baso % (Auto) 0.1 Lymph # (Auto) 1.7 Catron # (Auto) 0.8 Eos # (Auto) 0.0 Baso # (Auto) 0.0 Abs Immat Gran (auto) 0.05 H Absolute Neuts (auto) 9.7 H Absolute Nucleated RBC 0.000 Nucleated RBC % (auto) 0.0 Total Bilirubin 2.8 H Direct Bilirubin 2.0 H AST 278 H ALT 503 H Alkaline Phosphatase 178 H Total Protein 5.2 L Albumin 3.0 L Lipase 26 <Marline Weldon PA-C - Last Filed: 07/11/21 09:31> Microbiology Microbiology Results: Microbiology 07/09/21 23:46 Blood Culture - Preliminary Blood - Venous No growth after 24 hours. 07/09/21 23:44 Blood Culture - Preliminary Blood - Venous No growth after 24 hours. 07/09/21 20:16 Urine Culture - Preliminary Urine clean catch - Urine singletary top No growth to date. <Marline Weldon PA-C - Last Filed: 07/11/21 09:31> Procedures Date of Service Date of Service: 07/11/21 <Marline Weldon PA-C - Last Filed: 07/11/21 09:31> Progress Note: A&P Assessment and plan (1) Acute cholecystitis: Status: Acute <BUCK Guzman Last Filed: 07/11/21 09:31> (2) S/P laparoscopic cholecystectomy: Status: Acute <Marline Weldon PA-C - Last Filed: 07/11/21 09:31> Plan 30 year old female admitted with acute cholecystisis now POD #1 s/p lap CCY. C/o nausea, heartburn this am. VSS. Abd exam benign with appropriate post op tenderness. Dressings c/d/i. Transaminases improved but bilirubin up. Will repeat tomorrow morning- may require further imaging if not improved. IF downtrending, stable for dc to home if tolerating diet. On zofran, maalox ordered. <Marline Weldon PA-C - Last Filed: 07/11/21 09:31> 30 year old female admitted with acute cholecystisis now POD #1 s/p lap CCY. C/o nausea, heartburn this am. VSS. Abd exam benign with appropriate post op tenderness. Dressings c/d/i. Transaminases improved but bilirubin up. Will repeat tomorrow morning- may require further imaging if not improved. IF downtrending, stable for dc to home if tolerating diet. On zofran, maalox ordered. Patient with elevated bilirubins noted concerning for retained gallstone within the common bile duct. Will obtain a GI consultation for possible ERCP. <Phoenix Celaya MD - Last Filed: 07/11/21 13:16> Fall Risk Details Current Medications: Current Medications Hydromorphone HCl (Hydromorphone Hcl 0.5 Mg/0.5 Ml Syringe) 0.25 mg IVPUSH Q5M PRN; Protocol PRN Reason: Pain, Severe (Pain Scale 7-10) Last Admin: 07/10/21 13:35 Dose: 0.25 mg Documented by: Dextrose/Sodium Chloride (D5ns) 1,000 mls @ 100 mls/hr IVCONT .Q10H [facility] Last Admin: 07/11/21 09:18 Dose: 100 mls/hr Documented by: Ketorolac Tromethamine (Ketorolac Tromethamine 30 Mg/Ml Vial) 30 mg IVPUSH QID PRN PRN Reason: Pain, Severe (Pain Scale 7-10) Last Admin: 07/11/21 09:17 Dose: 30 mg Documented by: Morphine Sulfate (Morphine Sulfate 2 Mg/Ml Cartridge) 2 mg IVPUSH Q4H PRN; Protocol PRN Reason: Pain, Severe (Pain Scale 7-10) Ondansetron HCl (Ondansetron Hcl 4 Mg/2 Ml Vial) 4 mg IVPUSH ONCE PRN PRN Reason: Nausea and Vomiting Ondansetron HCl (Ondansetron Hcl 4 Mg/2 Ml Vial) 4 mg IVPUSH Q8H PRN PRN Reason: Nausea and Vomiting Last Admin: 07/11/21 09:17 Dose: 4 mg Documented by: Oxycodone HCl (Oxycodone Hcl Immed Release 5 Mg Tablet) 5 mg PO Q6H PRN PRN Reason: Pain, Moderate (Pain Scale 4-6 Last Admin: 07/10/21 22:25 Dose: 5 mg Documented by: Sodium Chloride (0.9 % Sodium Chloride Flush 3 Ml Syringe) 3 ml IVFLUSH QSHIFT JAMIE Last Admin: 07/11/21 09:17 Dose: Not Given Documented by: Zolpidem Tartrate (Zolpidem Tartrate 5 Mg Tablet) 5 mg PO BEDTIME PRN PRN Reason: Insomnia <Marline Weldon PA-C - Last Filed: 07/11/21 09:31> Time Spent With Patient Time: Total time spent is greater than 50% in coordination of care (as documented) at patient's floor/unit and/or counseling patient: <Marline Weldon PA-C - Last Filed: 07/11/21 09:31> Quality Stroke Does the patient have a stroke diagnosis?: No <Marline Weldon PA-C - Last Filed: 07/11/21 09:31> VTE Prior VTE?: No <Marline Weldon PA-C - Last Filed: 07/11/21 09:31> VTE Risk Level:: Surgical - low <BUCK Guzman Last Filed: 07/11/21 09:31> VTE Device Contraindication: N/A - Device Ordered <Marline Weldon PA-C - Last Filed: 07/11/21 09:31> VTE Drug Contraindication: Treatment Not Indicated <Marline Weldon PA-C - Last Filed: 07/11/21 09:31>
--- NOTE | 2021-07-11 10:03 | MHC.CLN ---
NUTRITION RECENT LIMITED INTAKE DUE TO PAIN. ADDING ENSURE BID (700 KCAL, 40 G PROTEIN) PER CONVERSATION WITH PATIENT.
[2021-07-11 16:00] VITALS: BP 95/70; PULSE 70; RESP 20; TEMP 37.2; O2SAT 96
--- NOTE | 2021-07-11 19:35 | P.EN_ITS ---
Event Note Date of Service: 07/11/21 Event Note: GI Consult-Full note dictated-Hx via patient with a medical office professional instructor, and from the EMR Imp: 30 yo female s/p lap CCY yesterday for symptomatic gallstones and noted to have elevated LFT's. The transaminases were significantly elevated preop, but the TBili was WNL and preop imaging studies revealed normal appearing bile ducts. Postop the transaminases and Alk phos have decreased, but the TBili has continued to rise. She is feeling much better clinically with only minimal discomfort and she is tolerating her diet. Her MRCP from today doesn't show any definitive bile duct abnormality to my reading, but I'm waiting for the official report. She does not show any signs of chronic liver disease on her exam, imaging studies, nor by her labs. Diff dx: Fatty liver with worsened LFT's and cholestasis due to acute cholecystitis vs. a retained or passed CBD stone. Rec: Continue to observe, F/U LFT's in AM, and await final MRCP reading. If MRCP is negative, LFT's improve, and she is feeling well, I would recommend discharge with F/U LFT's as an outpatient. If MRCP does show a CBD stone she would then need an ERCP. D/W patient in detail and she is comfortable with this plan. Thanks
[2021-07-11 19:43] VITALS: BP 104/70; PULSE 84; RESP 20; TEMP 36.8; O2SAT 99
[2021-07-11] MEDS: 0.9 % Sodium Chloride Flush 3 ML SYRINGE IVFLUSH (19:51)
[2021-07-11 23:37] VITALS: BP 95/57; PULSE 80; RESP 16; TEMP 36.4; O2SAT 98
--- NOTE | 2021-07-12 05:59 | CONS_ITS ---
DATE OF SERVICE: 07/11/2021 REQUESTING PHYSICIAN: Phoenix Celaya MD REASON FOR CONSULTATION: Elevated LFTs. HISTORY OF PRESENT ILLNESS: This has been obtained from the patient with a medical record librarians teacher and from the medical record. The patient is a 30-year-old healthy female, who was admitted to the hospital on July 10 with fairly acute onset of upper abdominal pain localized primarily to the right upper quadrant. She was found to have gallstones and some borderline thickening of the gallbladder wall. She describes similar episodes in the past, but nothing quite as severe. Before she came to the hospital, she did have some chills and nausea. She denies any vomiting or diarrhea. She denies any signs of jaundice at home. Since admission, she underwent a laparoscopic cholecystectomy yesterday with Dr. Celaya. Preoperatively, she did have elevated LFTs with an AST of 299, ALT 231, and alkaline phosphatase of 204. Her total bilirubin was 0.9 and albumin was 4.2. Those laboratories were from the night of July 09. On the morning of July 10, her preop LFTs showed elevations with an AST of 732, ALT 605, total bilirubin 1.8, and alkaline phosphatase 179. She went for laparoscopic cholecystectomy yesterday, July 10, and this was uneventful. Her laboratories from today showed a total bilirubin of 2.8 with a direct bilirubin of 2.0, AST down to 278, ALT down to 503, and stable alkaline phosphatase of 178. Albumin was 3.0. Of note, preoperative imaging with CT scan and ultrasound did not show any sign of biliary disease. Today, she describes that she is feeling much better than she was when she first got to the hospital. She does have some mild discomfort but significantly better than when she first arrived. She has been tolerating her diet. She denies any vomiting nor diarrhea. Prior to this illness, she was feeling well. She denies any known history of liver disease in herself or family members. She was not using any medication at home and specifically denies any acetaminophen or NSAIDs. She does not use any alcohol. Since admission here, she has been afebrile as well. Her blood pressure has been somewhat low in the 90s as well. MEDICATIONS: At home, none. Her medications here in the hospital include hydromorphone p.r.n., Toradol p.r.n., morphine p.r.n., and Zofran p.r.n. She did receive a dose of Zosyn yesterday. She is also on Ambien and oxycodone p.r.n. PAST MEDICAL HISTORY: Aside from the gallbladder surgery, she has had no other surgeries in her life. She denies any medical problems such as asthma, diabetes, heart disease, nor stroke. SOCIAL HISTORY: She is single and came here from [place] about 1 week ago. She has 1 child. She does not smoke or use any alcohol. FAMILY HISTORY: Noncontributory. REVIEW OF SYSTEMS: CONSTITUTIONAL: Prior to the past 2 days, she had been feeling well with good energy and good appetite. SKIN: No rash. No pruritus. CARDIAC: No chest pain. PULMONARY: No cough no hemoptysis. GI: As above. PHYSICAL EXAMINATION: GENERAL: The patient is a pleasant, alert, comfortable-appearing female. She is afebrile. SKIN: Warm and dry. Nonjaundiced. No obvious spider angiomata. Anicteric sclerae. NECK: Supple. ABDOMEN: Soft, nondistended. Normal bowel sounds. LABORATORY DATA: As above. She did have her MRCP with the official reading describing a normal-appearing bile duct, although the exam was somewhat limited due to motion. White blood cell count 12.3 today with a hemoglobin of 11.5. Platelets 192,000. Normal electrolytes. BUN 8, creatinine 0.7. LFTs as described above. IMPRESSION: Given the patient's clinical history and physical exam, I do not see any signs of chronic liver disease on her examination, by her laboratories, nor by her imaging studies. I suspect this is an acute process. I suspect this is probably related to some underlying fatty liver with a subsequent increased inflammation in relation to the cholecystitis and then subsequent cholestasis with elevated total bilirubin levels. She has had a somewhat low blood pressure and this could be reflective of some underlying shock liver, but I suspect that is not the case. Another possibility would be that of either a retained or passed common bile duct stone. At this point, she appears well. She certainly does not appear to be toxic and her abdominal exam is benign considering gallbladder surgery done just yesterday. As such, I would continue to observe her. Given the MRCP report, I do not think ERCP needs to be considered urgently. I would recommend repeat laboratories in the morning and continue to observe her. If she is continuing to feel well, is tolerating her diet, and the LFTs continue to improve, including the total bilirubin, then I think she can be discharged and have followup LFTs as an outpatient. If the LFTs continue to climb, then we could reassess things with a complete liver workup. I do not think a liver biopsy is presently required, but that would be considered in the future if the LFTs were to remain significantly elevated. This has all been discussed with the patient in detail and she is comfortable with this plan. Thank you for consultation. MD ROOSEVELT Odell/INDU / [id number] MTDD
[2021-07-12] MEDS: Dextrose 5 % and 0.9 % NaCl 1,000 ML 100 ML IVCONT (06:19)
[2021-07-12] MEDS: Ketorolac Tromethamine 30 MG/ML VIAL IVPUSH (06:21)
[2021-07-12] MEDS: ondansetron HCL 4 MG/2 ML VIAL IVPUSH (06:21)
[2021-07-12 07:29] LABS: Alanine Aminotransferase 484 U/L (0-31); Albumin Level 3.2 g/dL (3.5-5.0); Alkaline Phosphatase 193 U/L (39-117); Aspartate Amino Transferase 199 U/L (5-31); Bilirubin Direct 1.5 mg/dL (0.0-0.5); Bilirubin Total 2.2 mg/dL (0.0-1.0); Total Protein 5.5 g/dL (6.5-8.0)
[2021-07-12 07:42] VITALS: BP 114/60; PULSE 74; RESP 20; TEMP 36.2; O2SAT 97
--- NOTE | 2021-07-12 09:41 | PM.DS ---
DS: Providers Provider Date of Service: 07/12/21 Date of admission: 07/10/21 01:10 Date of discharge: 07/12/21 Primary care physician: Bronwyn Physician Admitting clinician: Tierra Gamble Attending physician on admission: Phoenix Celaya Consults: 07/11/21 11:46 Consult to Gastroenterology Routine Consulting Provider: Bernardino Rodríguez Reason for consultation: s/p lap cholecystectomy, rising bilrubin levels Attending physician on discharge: Phoenix Celaya Discharging clinician: Phoenix Celaya DS: Diagnosis Discharge Diagnosis (1) Acute cholecystitis: Status: Acute (2) S/P laparoscopic cholecystectomy: Status: Acute DS: Summary Hospital Course Hospital Course: Cheryl Middleton is a 30 year old female presenting with complaints of abdominal pain in the epigastrium right upper quadrant. The pain began 24 hours prior to admission and was associated with nausea without vomiting. Also reports anorexia she denies a prior history of similar symptoms. Because the pain was persistent she presented to the emergency department for further evaluation. In the emergency department she was noted to have a WBC of 13.8 . Transaminases and alkaline phosphatase were also elevated although the bilirubin was normal. Ultrasound of the gallbladder revealed gallstones within the gallbladder with mild wall thickening and tenderness on palpation of the gallbladder suggestive of acute cholecystitis. . Patient is admitted to the surgical service for further management of this acute cholecystitis. The patient was subsequently taken to the OR on 07/10/2021 for a laparoscopic or possible open cholecystectomy. Operative findings were consistent with acute cholecystitis due to cholelithiasis with an edematous gallbladder wall and multiple small gallstones within the gallbladder. She underwent an uneventful laparoscopic cholecystectomy. Postoperatively she did have some incisional pain in the right upper quadrant. On pod 1, the patient's laboratories revealed an elevated bilirubin and transaminases. An MRCP was ordered and revealed no evidence of common bile duct stone or ductal dilatation. A small amount of fluid was noted in the gallbladder fossa suggestive of a postoperative change. The patient was placed on a regular diet and observe for another 24 hours. On pod 2, repeat laboratories revealed a down trending of the liver function tests. The patient felt improved and was able to tolerate a regular diet. She will be discharged to home with a prescription for oxycodone with acetaminophen, and Zofran p.r.n. nausea. She should follow up my office in approximately 1 week for wound check. She should call sooner for fever, chills, nausea, vomiting, or other concerns. Time spent discussing smoking cessation with patient: 3 to 10 minutes Status at Discharge Functional status at discharge: independent ambulation Overall status at discharge: patient is back to baseline Time Spent with Patient Time attestation: Total time spent providing and/or coordinating discharge services: Discharge coordination time: Less than 30 minutes Quality: Stroke Does the patient have a stroke diagnosis?: No Physical Exam Vital Signs: Vital Signs: Last Vital Signs Temp 97.2 F 07/12/21 07:42 Pulse 74 07/12/21 07:42 Resp 20 07/12/21 07:42 BP 114/60 07/12/21 07:42 Pulse Ox 97 07/12/21 07:42 BMI result Body Mass Index 23.7 Const: General: healthy appearing Nutritional Appearance: well nourished Orientation/consciousness: patient oriented x3 Limitations: no limitations Eyes: Sclerae: sclerae normal EOM: EOMs intact bilaterally GI: Other: Incisions clean, dry, and intact without redness or discharge. Skin: Other: Warm, dry, normal color Neuro: General: patient oriented x3 Extrem: General: Yes no pedal edema DS: Data Data Completed and Pending Completed studies during hospitalization [Text1]: Pending at discharge 07/10/21 12:28 Surgical [PTH] Routine Labs on day of discharge: Laboratory Results - last 24 hr 07/12/21 05:47 Total Bilirubin 2.2 H Direct Bilirubin 1.5 H AST 199 H ALT 484 H Alkaline Phosphatase 193 H Total Protein 5.5 L Albumin 3.2 L Preliminary micro results at discharge 07/09/21 23:46 Blood Culture - Preliminary Blood - Venous No growth after 48 hours. 07/09/21 23:44 Blood Culture - Preliminary Blood - Venous No growth after 48 hours. Discharge Plan Discharge Patient Disposition: Home, Self-Care Discharge Diagnosis: acute cholecystitis Referrals: Phoenix Celaya MD [Physician] - 1 Week Physician,Bronwyn Pfeiffer [Primary Care Provider] - 1 Week Discharge Medications: New oxycodone-acetaminophen [Endocet] 5-325 mg tablet 1 tab PO Q6H PRN (Reason: pain (scale score 7-10)) Qty: 14 0RF ondansetron 4 mg tablet,disintegrating 4 mg PO Q8H PRN (Reason: nausea and vomiting) Qty: 20 0RF Discharge Orders: Discharge Order (Routine); Ordered 07/12/21 Ordered By: Phoenix Celaya Diet: low fat, low cholesterol Activity on Discharge: No heavy lifting Stand Alone Forms: Patient Portal Discharge page Activity Restrictions/Additional Instructions: If the incision area is tender, you may apply an ice pack for short intervals (No more than 20 minutes on, followed by at least 20 minutes off). Do not apply heat. Do not use creams, lotions, or topical antibiotics unless instructed to do so by your surgeon. These can cause infection or allergic reaction. Ok to shower. Remove clear dressings 3 days following your procedure. You have steri strips (small white cloth strips) covering your incision- these will fall off ~1 week. No heavy lifting (>10lbs) or strenuous activity! Follow up in office with Dr. Celaya in 1 week. ([phone]) Call Your Doctor If: -Your temperature exceeds 101.5? F -You experience excessive pain or swelling -You have an unexpected reaction to medication -You have excessive bleeding -You experience continued vomiting/nausea -Your incision begins to separate -Your incision shows signs of infection such as increased redness, swelling, excessive pain, drainage (light blood or clear fluid is normal) or heat Care Plan Goals: Return to baseline health and gradual return to activity following recovery period. Health Concerns: Acute cholecystitis Plan of Treatment: S/p laparoscopic cholecystectomy F/u with Dr. Celaya in office Assessment: Doing well post op.
--- NOTE | 2021-07-12 12:42 | MHC.CM.PN ---
CM ATTEMPTED TO SEE PT WHO WAS OOR PER EMR, PT LIVES WITH FAMILY AND IS INDEPENDENT WITH CARE NO CM INTERVENTION ANTICIPATED. DC HOME NO SERVICES FAMILY TO TRANSPORT
[2021-07-14 04:09] LABS: HBS Num1 3.29 mIU/mL (0-7.99); HBc Num1 0.09 S/CO (0.00-0.79); HBsAGNum1 0.24 S/CO (0.00-0.99); Hepatitis B Core Antibody Nonreactive (Nonreactive); Hepatitis B Surface Antigen Negative (Negative); ~Hepatitis B Surface Antibody NONREACTIVE (Nonreactive)
[2021-07-14 04:19] LABS: ~HepC Num1 0.07 S/CO (0.00-0.79); ~Hepatitis C Antibody Nonreactive (Nonreactive)
[2021-07-16 05:06] LABS: ~Hepatitis A Antibody IgM Nonreactive (Nonreactive)
== END 2021-07-12 12:39 | disposition home or self-care (01) | DRG 263 ==
LOC: HO.ED 07-10 00:17 → HO.EDOVER 07-10 01:46 → HO.S3 07-10 13:55
PROVIDERS: Internal Medicine; Nurse Practitioner Family; Admitting Provider Surgery; Emergency Provider Emergency Medicine; Visit Provider Surgery
PROC: 0FT44ZZ Resection of Gallbladder, Percutaneous Endoscopic Approach (ICD-10-PCS; CPT 47562; principal; 2021-07-10 11:00)
DX: K80.00 Calculus of gallbladder with acute cholecystitis without obstruction (principal); K76.0 Fatty (change of) liver, not elsewhere classified; Z20.822 Contact with and (suspected) exposure to COVID-19
CPT/HCPCS: 47562; 36415; 74177; 74181; 76705; 80053; 80076; 81001; 81025; 82947; 83605; 83690; 85007; 85025; 85027; 86704; 86706; 86709; 86803; 87040; 87086; 87340; 87635; 88304; 93005; 96361; 96365; 96375; 99285; J0131; J0330; J1100; J1170; J1885; J2250; J2270; J2405; J2543; J3010; Q9967

== ENCOUNTER 2021-10-04 22:26 | Emergency (ER) | payer OTHER, SELFPAY ==
[2021-10-04 23:16] VITALS: BP 103/74; PULSE 109; RESP 20; TEMP 36.8; O2SAT 97; BMI 28.6
[2021-10-04 23:33] LABS: COVID-19 Test Positive (Negative); IDNOW Serial# 16C4AD1C
[2021-10-04 23:39] LABS: Influenza A Negative (Negative); Influenza B2 Negative (Negative)
--- NOTE | 2021-10-05 00:24 | ED.URI ---
HPI - URI/Sore Throat General Chief Complaint: Upper Respiratory Symptoms Stated Complaint: Flu like symptoms Time Seen by Provider: 10/04/21 23:37 Source: patient Mode of arrival: ambulatory Limitations: no limitations History of Present Illness HPI Narrative: 31-year-old female previously healthy here with the cough and fevers since last night. Took a home COVID test was positive. She denies any shortness of breath, chest pain, vomiting, diarrhea, abdominal pain, headache, rash. Patient had to COVID vaccinations. Related Data Previous Rx's Medication Instructions Recorded ondansetron 4 mg disintegrating 4 mg PO Q8H PRN nausea and 07/12/21 tablet vomiting #20 tabs oxycodone-acetaminophen 5 mg-325 1 tab PO Q6H PRN pain (scale score 07/12/21 mg tablet (Endocet) 7-10) #14 tabs Allergies Allergy/AdvReac Type Severity Reaction Status Date / Time No Known Allergies Allergy Verified 07/10/21 10:10 Review of Systems Review of Systems: Yes all other systems are reviewed and are negative Constitutional: Constitutional: Reports no additional constitutional complaints, Denies body ache(s), Denies chills, Reports fever(s), Denies headache(s) and Denies weakness Eyes: Eyes: Reports no additional eye complaints and Denies change in vision ENT: Reports system reviewed and no additional complaints, except as documented, Denies dizziness, Denies headache(s), Denies nasal congestion, Denies nasal discharge and Denies neck pain Cardiovascular: Cardiovascular: Reports no additional cardiovascular complaints, Denies chest pain, Denies leg edema and Denies dyspnea Respiratory: Respiratory: Reports no additional respiratory complaints, Denies cough and Denies dyspnea Gastrointestinal: Gastrointestinal: Reports no additional gastrointestinal complaints, Denies abdominal pain, Denies diarrhea, Denies nausea and Denies vomiting Genitourinary: Genitourinary: Reports no additional female genitourinary complaints and Denies urinary incontinence Musculoskeletal: Musculoskeletal: Reports no additional musculoskeletal complaints, Denies back pain, Denies arthralgias, Denies joint swelling, Denies neck pain, Denies numbness and Denies tingling Integumentary/Breasts: Skin/Breast: Reports system reviewed and no additional complaints, except as docu and Denies rash Neurologic: Reports system reviewed and no additional complaints, except as documented, Denies Abnormal speech present, Denies dizziness, Denies headache(s), Denies numbness, Denies tingling and Denies weakness PMFSH Past Medical History Attestation statement: The following information was validated with the patient. Source: old records reviewed and nursing notes reviewed Surgical History Hx of colonoscopy S/P laparoscopic cholecystectomy Social History Social History Household Members: Significant Other Housing: Apartment Do you presently have visiting nurse or other home services: No Alcohol intake: never Patient Tobacco Use Status: Never used Tobacco Advance Directives: No Advance Directives Information Provided: Yes service: No Current occupational status: unemployed Physical Exam Vital Signs: Vital Signs: Last Vital Signs Temp 98.2 F 10/04/21 23:16 Pulse 109 H 10/04/21 23:16 Resp 20 10/04/21 23:16 BP 103/74 10/04/21 23:16 Pulse Ox 97 10/04/21 23:16 O2 Del Method 10/04/21 23:16 BMI result Body Mass Index 28.6 Const: General: cooperative, healthy appearing, comfortable and no acute distress Orientation/consciousness: patient oriented x3 Limitations: no limitations HEENT: Head: Yes normal to inspection Ears: hearing grossly normal bilaterally and TM's normal bilaterally General nose exam: Normal external nose present Face and sinus: Yes normal facial exam Mouth: Normal oral and palatal mucosa present Throat: Yes posterior oropharynx normal, Yes tonsils normal and Yes uvula midline Eyes: General: appearance normal, both eyes and all related structures Pupils: Equal, round and reactive pupils present Neck: Neck: Yes normal visual inspection, Yes full ROM, Yes no lymphadenopathy and Yes no meningeal signs Chest: Chest palpation & inspection: normal inspection of the chest Resp: Effort & Inspection: normal respiratory effort Auscultation: clear to auscultation bilaterally Cardio: Rate: regular rate Rhythm: regular rhythm Peripheral pulses: Peripheral pulses 2+ throughout GI: Inspection: Yes normal to inspection Palpation (GI): Soft to palpation and nontender Auscultation: normal bowel sounds Back/Spine/Pelvis: Thoracic/Lumbar Spine: thoracic and lumbar spine normal to inspection Skin: General skin exam: no rashes or lesions noted Neuro: General: patient oriented x3, no meningeal signs, no focal motor deficits and normal sensation to monofilament Cranial nerves: Yes Equal, round and reactive pupils present Cognition (Neuro): normal cognition Speech: No Abnormal speech present Gait exam (Neuro): Normal gait present Motor exam (neuro): 5/5 motor strength present throughout Extrem: General: Yes normal to inspection Course Course Course Narrative: COVID screen is positive. Reviewed quarantine at home. Reviewed supportive care. Reviewed worrisome signs and symptoms of when to return to the emergency department. Comfortable discharge home. MDM - URI/Sore Throat MDM Narrative Medical decision making narrative: 31-year-old female here with cough and fever since last night. Home COVID test is positive. Exam is normal. Vitals are stable. Will check COVID screen Medical Records Attestation: I reviewed the patient's medical records. Lab Data Attestation: I reviewed the patient's lab results. Labs: Lab Results 10/04/21 10/04/21 Range/Units 23:14 23:14 COVID-19 (ARTIE) Positive A (Negative) COVID-19 Clin Com See Note Influenza Type A (SANDY) Negative (Negative) Influenza Type B (SANDY) Negative (Negative) Influenza A & B Note See Note Discharge Plan Discharge Clinical Impression: COVID-19 Patient Disposition: Home, Self-Care Instructions: COVID-19 (Coronavirus Disease 2019) (ED) Additional Instructions: Quarantine for 5 days from onset of symptoms Alternate Motrin and Tylenol for pain or fever Increase fluids, rest Seek care in the emergency department for any shortness of breath, chest pain Prescriptions: No Action oxycodone-acetaminophen [Endocet] 5-325 mg tablet 1 tab PO Q6H PRN (Reason: pain (scale score 7-10)) Qty: 14 0RF ondansetron 4 mg tablet,disintegrating 4 mg PO Q8H PRN (Reason: nausea and vomiting) Qty: 20 0RF Referrals: Physician,Unknown J [Primary Care Provider] - Stand Alone Forms: Work/School Release Interventions: ED Discharge Assessment Last Done: 10/05/21 00:05 Discharge Date/Time: 10/05/21 00:05
== END 2021-10-05 00:05 | disposition home or self-care (01) ==
PROVIDERS: Emergency Provider Emergency Medicine
DX: U07.1 COVID-19 (principal); R05.9 Cough, unspecified; R50.9 Fever, unspecified; Z79.899 Other long term (current) drug therapy
CPT/HCPCS: 87502; 87635; 99282; 99283

== ENCOUNTER 2022-01-07 16:40 | Emergency (ER) | payer OTHER, SELFPAY ==
[2022-01-07 17:14] VITALS: BP 99/70; PULSE 95; RESP 16; TEMP 37; O2SAT 100; BMI 37.3
--- NOTE | 2022-01-07 17:29 | ED.URI ---
HPI - URI/Sore Throat General Chief Complaint: Upper Respiratory Symptoms Stated Complaint: Sore throat Time Seen by Provider: 01/07/22 17:29 Source: patient Mode of arrival: ambulatory Limitations: language barrier (Hebrew speaking only, line construction supervisor used) History of Present Illness HPI Narrative: 31-year-old female who presents emergency department for evaluation of sore throat, bilateral ear pain, subjective fever and chills and cough x3 days. The patient states that she has a constant, dull pain in her throat which is worse with swallowing, she has had no difficulty swallowing liquids or solids. She states that she has had intermittent subjective fevers the past several days. She has a cough which is nonproductive. She denied chest pain, shortness of breath, dyspnea on exertion. She denied nausea, vomiting, diarrhea. The patient's 5-year-old daughter who is here in the emergency department as well has similar symptoms. Related Data Previous Rx's Medication Instructions Recorded ondansetron 4 mg disintegrating 4 mg PO Q8H PRN nausea and 07/12/21 tablet vomiting #20 tabs oxycodone-acetaminophen 5 mg-325 1 tab PO Q6H PRN pain (scale score 07/12/21 mg tablet (Endocet) 7-10) #14 tabs Allergies Allergy/AdvReac Type Severity Reaction Status Date / Time No Known Allergies Allergy Verified 07/10/21 10:10 Review of Systems Review of Systems: Yes all other systems are reviewed and are negative [facility] Past Medical History [facility] Narrative: Past medical history: None. Past surgical history: Cholecystectomy 7 months prior. Social history: Patient denies tobacco, alcohol and drug use. Surgical History Hx of colonoscopy S/P laparoscopic cholecystectomy Social History Social History Household Members: Significant Other Housing: Apartment Do you presently have visiting nurse or other home services: No Alcohol intake: never Patient Tobacco Use Status: Never used Tobacco Advance Directives: No Advance Directives Information Provided: No service: No Current occupational status: unemployed Physical Exam Vital Signs: Vital Signs: Last Vital Signs Temp 98.6 F 01/07/22 17:14 Pulse 95 01/07/22 17:14 Resp 16 01/07/22 17:14 BP 99/70 01/07/22 17:14 Pulse Ox 100 01/07/22 17:14 O2 Del Method 01/07/22 17:14 BMI result Body Mass Index 37.3 Const: General: cooperative and no acute distress Orientation/consciousness: oriented to person and oriented to place Limitations: no limitations HEENT: Head: Yes normal to inspection, Yes normocephalic and Yes atraumatic Ears: external ears normal General nose exam: Normal external nose present Face and sinus: Yes normal facial exam Mouth: Normal oral and palatal mucosa present Throat: Yes posterior oropharynx normal Eyes: General: appearance normal, both eyes and all related structures Neck: Neck: Yes normal visual inspection, Yes no lymphadenopathy, Yes trachea midline and Yes supple Chest: Chest palpation & inspection: normal inspection of the chest and normal palpation of entire chest wall Resp: Effort & Inspection: normal respiratory effort and able to speak in complete sentences Auscultation: clear to auscultation bilaterally Cardio: Rate: regular rate Rhythm: regular rhythm Heart sounds: S1 normal heart sound present, S2 normal heart sound present and no murmurs GI: Inspection: Yes normal to inspection Palpation (GI): Soft to palpation, nontender and no guarding Auscultation: normal bowel sounds : General: Yes no CVA tenderness Back/Spine/Pelvis: Back: no CVA tenderness Skin: General skin exam: no rashes or lesions noted Neuro: General: oriented to person and oriented to place Cognition (Neuro): normal cognition Motor exam (neuro): 5/5 motor strength present throughout Extrem: General: Yes normal to inspection Psych: Appearance: grossly normal Speech and movement: Normal speech and movement present Affect: normal affect Attitude: cooperative Course Course Course Narrative: Patient's presentation findings are consistent with acute viral illness, at this time I do not think patient needs antibiotics or further testing. I did discuss this with the patient. Patient was given printed and verbal instructions and discharged home. Discharge Plan Discharge Clinical Impression: Upper respiratory infection, Viral infection Patient Disposition: Home, Self-Care Instructions: Upper Respiratory Infection (ED), Viral Syndrome (ED) Additional Instructions: Your symptoms are consistent with a viral infection. Take ibuprofen 200 mg pills, 3 pills every 6 hours as needed for pain or fever. Take Tylenol (acetaminophen) 500 mg pills, 2 pills every 4 to 6 hours as needed for pain or fever. Follow-up with your doctor in 2 days. Please return to the emergency department if your symptoms get worse or if you develop any symptoms that are concerning to you. Prescriptions: No Action oxycodone-acetaminophen [Endocet] 5-325 mg tablet 1 tab PO Q6H PRN (Reason: pain (scale score 7-10)) Qty: 14 0RF ondansetron 4 mg tablet,disintegrating 4 mg PO Q8H PRN (Reason: nausea and vomiting) Qty: 20 0RF Stand Alone Forms: Work/School Release Interventions: ED Discharge Assessment Last Done: 01/07/22 18:40 Discharge Date/Time: 01/07/22 18:30 Print Language: Hebrew
== END 2022-01-07 18:30 | disposition home or self-care (01) ==
PROVIDERS: Emergency Provider Emergency Medicine Emergency Medical Services
DX: J06.9 Acute upper respiratory infection, unspecified (principal); B34.9 Viral infection, unspecified; J02.9 Acute pharyngitis, unspecified
CPT/HCPCS: 99282; 99283

== ENCOUNTER 2022-03-16 08:50 | Emergency (ER) | payer OTHER, SELFPAY ==
[2022-03-16 09:32] VITALS: BP 117/69; PULSE 100; RESP 16; TEMP 36.1; O2SAT 98; BMI 31.5
[2022-03-16 09:43] LABS: MANUAL DIFF FLAG NO
[2022-03-16 09:45] LABS: Basophils Percent Auto 0.1 % (0-2); Eosinophils Percent Auto 0.3 % (0-4); Hemoglobin 13.6 g/dl (12.0-16.0); Imm Gran Abs Auto 0.03 X10*3/uL (0.00-0.03); Imm Gran Pct Auto 0.3 % (0.0-0.4); Lymphocytes Absolute Auto 1.1 X10*3/uL (1.2-4.9); Lymphocytes Percent Auto 10.6 % (20-40); Mean Corpuscular HGB Conc 34.9 g/dl (31.0-35.0); Mean Corpuscular Hemoglobin 32.7 pg (27.0-33.0); Mean Corpuscular Volume 93.8 fL (80.0-98.0); Mean Platelet Volume 10.7 fL (9.4-12.3); Monocytes Absolute Auto 0.6 X10*3/uL (0.1-1.2); Monocytes Percent Auto 6.3 % (2-11); Neutrophils Absolute Auto 8.3 x10*3/uL (2.0-8.3); Neutrophils Percent Auto 82.4 % (45-73); Platelet Count 192 X10*3/uL (160-400); Red Blood Count 4.16 X10*6/uL (4.20-5.50); Red Cell Distribution Width 11.8 % (11.0-16.0); White Blood Count 10.1 X10*3/uL (4.8-10.8)
[2022-03-16 10:01] LABS: Alanine Aminotransferase 40 U/L (0-31); Albumin Level 4.1 g/dL (3.5-5.0); Alkaline Phosphatase 98 U/L (39-117); Anion Gap 15 (12-20); Aspartate Amino Transferase 34 U/L (5-31); Bilirubin Direct 0.2 mg/dL (0.0-0.5); Bilirubin Total 0.4 mg/dL (0.0-1.0); Blood Urea Nitrogen 10 mg/dL (9-16); Calcium 9.1 mg/dL (8.4-10.2); Carbon Dioxide 22 mmol/L (22-29); Chloride 102 mmol/L (96-108); Creatinine Clr Calc Pharmacy 104.1; Estimated Glomerular Filt Rate > 60; Glucose Random 152 mg/dL (60-115); Potassium 3.8 mmol/L (3.3-5.1); Sodium 135 mmol/L (135-145); Total Protein 7.3 g/dL (6.5-8.0)
--- NOTE | 2022-03-16 13:10 | ED_ITS ---
HPI - Nausea/Vomiting/Diarrhea General Chief complaint: Nausea/Vomiting/Diarrhea Stated complaint: Vomiting/Diarrhea/Dehydrated/3 months preg Time Seen by Provider: 03/16/22 12:28 Source: patient Mode of arrival: ambulatory Limitations: no limitations History of Present Illness HPI Narrative: 31-year-old Chinese-speaking female with past medical history acute cholecystitis in June 2021 in currently 3 months presents to the emergency department with nausea, vomiting, diarrhea x 2 days with concern for dehydration. She states she has not been able to tolerate p.o. due to increased diarrhea soon after eating. She denies any known viral illness, or sick contacts. She denies eating any new foods and states all food she has consumed have been properly could not handle. She denies any abdominal cramping or vaginal bleeding, discharge, or odor. MD elicited complaint: nausea, vomiting and diarrhea Onset (ago): day(s) Description of vomiting: food contents and watery Description of diarrhea: loose Associated nausea: Yes Associated abdominal pain: Yes Location of pain: LUQ Radiation: does not radiate Pain consistency: intermittent Severity: mild Quality: cramping Exacerbating factors: eating Relieving factors: none Treatment prior to arrival: none Related Data Previous Rx's Medication Instructions Recorded ondansetron 4 mg disintegrating 4 mg PO Q8H PRN nausea and 07/12/21 tablet vomiting #20 tabs oxycodone-acetaminophen 5 mg-325 1 tab PO Q6H PRN pain (scale score 07/12/21 mg tablet (Endocet) 7-10) #14 tabs Allergies Allergy/AdvReac Type Severity Reaction Status Date / Time No Known Allergies Allergy Verified 07/10/21 10:10 Review of Systems Review of Systems: Yes all other systems are reviewed and are negative Constitutional: Constitutional: Reports no additional constitutional complaints, Denies chills, Denies fever(s), Denies headache(s) and Reports poor appetite Eyes: Eyes: Reports no additional eye complaints and Denies change in vision ENT: Reports system reviewed and no additional complaints, except as docum ented and Denies headache(s) Cardiovascular: Cardiovascular: Reports no additional cardiovascular complaints, Denies chest pain and Denies dyspnea Respiratory: Respiratory: Reports no additional respiratory complaints and Denies dyspnea Gastrointestinal: Gastrointestinal: Reports no additional gastrointestinal complaints, Denies melena, Denies hematochezia, Denies constipation, Reports diarrhea, Reports nausea and Reports vomiting Genitourinary: Genitourinary: Reports no additional female genitourinary complaints, Denies abnormal vaginal bleeding, Denies vaginal discharge and D enies vaginal odor Musculoskeletal: Musculoskeletal: Reports no additional musculoskeletal complaints, Denies myalgias, Denies numbness and Denies tingling Integumentary/Breasts: Skin/Breast: Reports system reviewed and no additional complaints, except as docu, Denies lesions, Denies erythema, Denies rash and Denies sores Neurologic: Reports system reviewed and no additional complaints, except as documented, Denies headache(s), Denies numbness and Denies tingling Psychiatric: Psychiatric: Reports no additional psychiatric complaints Endocrine: Endocrine: Reports no additional endocrine complaints, Denies polyphagia, Denies polydipsia and Denies polyuria [facility] Past Medical History Attestation statement: The following information was validated with the patient. Source: old records reviewed Surgical History Hx of colonoscopy S/P laparoscopic cholecystectomy Social History Social History Household Members: Significant Other Housing: Apartment Do you presently have visiting nurse or other home services: No Alcohol intake: never Patient Tobacco Use Status: Never used Tobacco Advance Directives: No Advance Directives Information Provided: Yes service: No Current occupational status: unemployed Physical Exam Vital Signs: Vital Signs: Last Vital Signs Temp 97 F 03/16/22 09:32 Pulse 100 03/16/22 09:32 Resp 16 03/16/22 09:32 BP 117/69 03/16/22 09:32 Pulse Ox 98 03/16/22 09:32 O2 Del Method 03/16/22 09:32 BMI result Body Mass Index 31.5 Const: General: cooperative, alert, awake and well groomed Nutritional Appearance: well nourished Orientation/consciousness: patient oriented x3 Limitations: language barrier HEENT: Head: Yes normal to inspection, Yes normocephalic and Yes atraumatic Ears: hearing grossly normal bilaterally and external ears normal General nose exam: Normal external nose present and Normal nares present Face and sin us: Yes normal facial exam and Yes face symmetric Mouth: Normal oral and palatal mucosa present Eyes: General: appearance normal, both eyes and all related structures Visual Banda: normal visual banda by confrontation Alignment and Position: alignment normal Periorbital: periorbital findings normal Eyelids: Yes eyelids normal Conjunctivae: conjunctivae normal Sclerae: sclerae normal Pupils: Equal, round and reactive pupils present EOM: EOMs intact bilaterally Neck: Neck: Yes normal visual inspection and Yes full ROM Chest: Chest palpation & inspection: normal inspection of the chest Resp: Effort & Inspection: normal respiratory effort, no cough and not labored Auscultation: clear to auscultation bilaterally Cardio: Rate: regular rate Rhythm: regular rhythm GI: Inspection: Yes normal to inspection Palpation (GI): Soft to palpation and nontender Auscultation: normal bowel sounds : General: Yes no CVA tenderness Back/Spine/Pelvis: Back: no CVA tenderness Cervical Spine: cervical ROM normal Thoracic/Lumbar Spine: thoraco-lumbar ROM normal Skin: General skin exam: no rashes or lesions noted Neuro: General: patient oriented x3 and moves all extremities Cranial nerves: Yes Equal, round and reactive pupils present and Yes Bilaterally intact EOM present Cognition (Neuro): normal cognition Gait exam (Neuro): Normal gait present Motor exam (neuro): 5/5 motor strength present throughout Extrem: General: Yes normal to inspection, Yes full ROM and Yes capillary refill normal Psych: Appearance: grossly normal and well kempt Mental Status: mental status grossly normal Speech and movement: Normal speech and movement present Affect: normal affect Attitude: cooperative Thought process: Normal thought process present Thought content: Normal thought content present Insight: Good insight present (Psych) Judgement: Good judgement present (Psych) Course Course Course Narrative: 1315: Blood work unremarkable when compared to previous lab values. Crackers and arjiv hari provided. MDM - Nausea/Vomiting/Diarrhea MDM Narrative Medical decision making narrative: 31-year-old Chinese-speaking female presenting to the emergency department with vomiting, nausea, diarrhea, inability to tolerate food. Blood work is unremarkable with no indication of dehydration. Able to tolerate rajiv hari and crackers in the emergency department. Low suspicion for pancreatitis or liver pathology based on blood work results. Diagnostics and physical exam discussed with patient with plan to discharge home for symptom management. Patient with no unanswered questions at this time. Educated to present back to the emergency department with fever, chills, inability to tolerate p.o. intake, increased diarrhea, or any other emergent symptoms that may be concerning. Recommended to follow-up with your primary care provider an speeder hand for further treatment and management Medical Records Attestation: I reviewed the patient's medical records. Lab Data Attestation: I reviewed the patient's lab results. Result diagrams: 03/16/22 09:38 03/16/22 09:38 Labs: Lab Results 03/16/22 03/16/22 03/16/22 Range/Units 09:38 09:38 13:23 WBC 10.1 (4.8-10.8) X10*3/uL RBC 4.16 L (4.20-5.50) X10*6/uL Hgb 13.6 (12.0-16.0) g/dl Hct 39.0 (37.0-47.0) % MCV 93.8 (80.0-98.0) fL MCH 32.7 (27.0-33.0) pg MCHC 34.9 (31.0-35.0) g/dl RDW 11.8 (11.0-16.0) % Plt Count 192 (160-400) X10*3/uL MPV 10.7 (9.4-12.3) fL Immature Gran % (Auto) 0.3 (0.0-0.4) % Neut % (Auto) 82.4 H (45-73) % Lymph % (Auto) 10.6 L (20-40) % [place] % (Auto) 6.3 (2-11) % Eos % (Auto) 0.3 (0-4) % Baso % (Auto) 0.1 (0-2) % Lymph # (Auto) 1.1 L (1.2-4.9) X10*3/uL [place] # (Auto) 0.6 (0.1-1.2) X10*3/uL Eos # (Auto) 0.0 (0.0-0.4) X10*3/uL Baso # (Auto) 0.0 (0.0-0.2) X10*3/uL Abs Immat Gran (auto) 0.03 (0.00-0.03) X10*3/uL Absolute Neuts (auto) 8.3 (2.0-8.3) x10*3/uL Absolute Nucleated RBC 0.000 (0.0-0.012) X10*3/uL Nucleated RBC % (auto) 0.0 (0.0-0.2) /100WBC Sodium 135 (135-145) mmol/L Potassium 3.8 (3.3-5.1) mmol/L Chloride 102 (96-108) mmol/L Carbon Dioxide 22 (22-29) mmol/L Anion Gap 15 (12-20) BUN 10 (9-16) mg/dL Creatinine 0.67 (0.5-1.4) mg/dL Estim Creat Clear Calc 104.1 Estimated GFR > 60 Random Glucose 152 H (60-115) mg/dL Calcium 9.1 (8.4-10.2) mg/dL Total Bilirubin 0.4 (0.0-1.0) mg/dL Direct Bilirubin 0.2 (0.0-0.5) mg/dL AST 34 H D (5-31) U/L ALT 40 H (0-31) U/L Alkaline Phosphatase 98 D (39-117) U/L Total Protein 7.3 D (6.5-8.0) g/dL Albumin 4.1 D (3.5-5.0) g/dL Amylase 67 (28-100) U/L Lipase 25 (8-78) U/L Influenza Type A (PCR) NEGATIVE (Negative) Influenza Type B (PCR) NEGATIVE (Negative) RSV RNA Qual (PCR) NEGATIVE (Negative) SARS-CoV-2 RNA (RT-PCR) NEGATIVE (Negative) Discharge Plan Discharge Clinical Impression: Nausea & vomiting, Diarrhea, Patient Disposition: Home, Self-Care Instructions: Acute Nausea and Vomiting (ED), Acute Diarrhea (ED), at 11 to 14 Weeks (ED) Additional Instructions: Educated to eat and drink bland foods for the next 24 hours such as dry toast, plan rice, rajiv rale, crackers. Please return to the emergency department for worsening nausea, vomiting, diarrhea. Recommended to follow-up with your primary care provider and speeder hand for further treatment and management. Prescriptions: No Action oxycodone-acetaminophen [Endocet] 5-325 mg tablet 1 tab PO Q6H PRN (Reason: pain (scale score 7-10)) Qty: 14 0RF ondansetron 4 mg tablet,disintegrating 4 mg PO Q8H PRN (Reason: nausea and vomiting) Qty: 20 0RF Referrals: [facility] Family Medicine [Provider Group] [facility] [Provider Group] [facility] [Provider Group] Stand Alone Forms: Work/School Release Print Language: Chinese
[2022-03-16 13:49] LABS: Amylase 67 U/L (28-100); Lipase 25 U/L (8-78)
[2022-03-16 14:10] LABS: Influenza A PCR NEGATIVE (Negative); Influenza B PCR NEGATIVE (Negative); Resp Syncy Virus RNA Qual PCR NEGATIVE (Negative); SARS COV2 PCR INHOUSE NEGATIVE (Negative)
== END 2022-03-16 14:33 | disposition home or self-care (01) ==
PROVIDERS: Nurse Practitioner Family; Emergency Provider Emergency Medicine
DX: O26.891 Other specified pregnancy related conditions, first trimester (principal); R11.2 Nausea with vomiting, unspecified; R19.7 Diarrhea, unspecified; Z3A.12 12 weeks gestation of pregnancy; Z20.822 Contact with and (suspected) exposure to COVID-19
CPT/HCPCS: 0241U; 36415; 80048; 80076; 82150; 83690; 85025; 99283

== ENCOUNTER 2022-07-15 10:18 | Emergency (ER) | payer OTHER, SELFPAY ==
[2022-07-15 10:22] VITALS: BP 105/63; PULSE 100; RESP 20; TEMP 36.3; O2SAT 97; BMI 32.1
[2022-07-15 11:45] VITALS: BP 98/58; PULSE 99; RESP 18; TEMP 36.4; O2SAT 98
--- NOTE | 2022-07-15 12:15 | ED.URI ---
HPI - URI/Sore Throat General Chief Complaint: Upper Respiratory Symptoms Stated Complaint: SOB Time Seen by Provider: 07/15/22 11:27 Source: patient and customer account administrator Mode of arrival: ambulatory Limitations: language barrier History of Present Illness HPI Narrative: 31-year-old female currently 29 weeks with gestational diabetes (checking BS only, no insulin) here with complaints of 2 days of sinus pressure, sinus pain, ear pain, sore throat, cough. No difficulty breathing, chest pain, abdominal pain or cramping or vaginal bleeding. Patient's due date is October 30. Patient's care is at [facility]. Patient reports multiple family members are sick with similar symptoms. Patient has done COVID testing at home which has been negative Related Data Previous Rx's Medication Instructions Recorded ondansetron 4 mg disintegrating 4 mg PO Q8H PRN nausea and 07/12/21 tablet vomiting #20 tabs oxycodone-acetaminophen 5 mg-325 1 tab PO Q6H PRN pain (scale score 07/12/21 mg tablet (Endocet) 7-10) #14 tabs amoxicillin 500 mg capsule 500 mg PO BID #20 caps 07/15/22 Allergies Allergy/AdvReac Type Severity Reaction Status Date / Time No Known Allergies Allergy Verified 07/10/21 10:10 Review of Systems Review of Systems: Yes all other systems are reviewed and are negative Constitutional: Constitutional: Reports no additional constitutional complaints, Denies body ache(s), Denies chills, Denies fever(s), Denies headache(s) and Denies weakness Eyes: Eyes: Reports no additional eye complaints and Denies change in vision ENT: Reports system reviewed and no additional complaints, except as documented, Denies dizziness, Reports otalgia, Denies headache(s), Reports nasal congestion, Denies nasal discharge, Denies neck pain, Reports sinus pain and Reports sinus pressure Cardiovascular: Cardiovascular: Reports no additional cardiovascular complaints, Denies chest pain, Denies leg edema and Denies dyspnea Respiratory: Respiratory: Reports no additional respiratory complaints, Reports cough and Denies dyspnea Gastrointestinal: Gastrointestinal: Reports no additional gastrointestinal complaints, Denies abdominal pain, Denies diarrhea, Denies nausea and Denies vomiting Genitourinary: Genitourinary: Reports no additional female genitourinary complaints and Denies urinary incontinence Musculoskeletal: Musculoskeletal: Reports no additional musculoskeletal complaints, Denies back pain, Denies arthralgias, Denies joint swelling, Denies neck pain, Denies numbness and Denies tingling Integumentary/Breasts: Skin/Breast: Reports system reviewed and no additional complaints, except as docu and Denies rash Neurologic: Reports system reviewed and no additional complaints, except as documented, Denies Abnormal speech present, Denies dizziness, Denies headache(s), Denies numbness, Denies tingling and Denies weakness [facility] Past Medical History Attestation statement: The following information was validated with the patient. Source: old records reviewed and nursing notes reviewed Surgical History Hx of colonoscopy S/P laparoscopic cholecystectomy Social History Social History Household Members: Significant Other Housing: Apartment Do you presently have visiting nurse or other home services: No Alcohol intake: never Patient Tobacco Use Status: Never used Tobacco Advance Directives: No Advance Directives Information Provided: Yes service: No Current occupational status: unemployed Physical Exam Vital Signs: Vital Signs: Last Vital Signs Temp 97.5 F 07/15/22 11:45 Pulse 99 07/15/22 11:45 Resp 18 07/15/22 11:45 BP 98/58 L 07/15/22 11:45 Pulse Ox 98 07/15/22 11:45 O2 Del Method Room Air 07/15/22 11:45 BMI result Body Mass Index 32.1 Const: General: cooperative, healthy appearing, comfortable and no acute distress Orientation/consciousness: patient oriented x3 Limitations: no limitations HEENT: Head: Yes normal to inspection Ears: hearing grossly normal bilaterally and TM's normal bilaterally General nose exam: Normal external nose present and Other nasal findings present (Bilateral nasal turbinate erythema) Face and sinus: Yes normal facial exam and Yes sinus tenderness Mouth: Normal oral and palatal mucosa present Throat: Yes posterior oropharynx normal, Yes tonsils normal and Yes uvula midline Eyes: General: appearance normal, both eyes and all related structures Pupils: Equal, round and reactive pupils present Neck: Neck: Yes normal visual inspection, Yes full ROM, Yes no lymphadenopathy and Yes no meningeal signs Chest: Chest palpation & inspection: normal inspection of the chest Resp: Effort & Inspection: normal respiratory effort Auscultation: clear to auscultation bilaterally Cardio: Rate: regular rate Rhythm: regular rhythm Peripheral pulses: Peripheral pulses 2+ throughout GI: Inspection: Yes normal to inspection Palpation (GI): Soft to palpation and nontender Auscultation: normal bowel sounds Back/Spine/Pelvis: Thoracic/Lumbar Spine: thoracic and lumbar spine normal to inspection Skin: General skin exam: no rashes or lesions noted Neuro: General: patient oriented x3, no meningeal signs, no focal motor deficits and normal sensation to monofilament Cranial nerves: Yes Equal, round and reactive pupils present Cognition (Neuro): normal cognition Speech: No Abnormal speech present Gait exam (Neuro): Normal gait present Motor exam (neuro): 5/5 motor strength present throughout Extrem: General: Yes normal to inspection Course Course Course Narrative: Testing for flu, COVID, RSV are negative. Exam is consistent with sinusitis. Patient be treated with course of antibiotics. Reviewed worrisome signs and symptoms with return to the emergency room. Comfortable for discharge home. Medical Decision Making Medical Decision Making [facility] Narrative: 31-year-old female currently here with complaints of sinus pressure, sinus pain, nasal congestion, ear pain, cough for 2 days. Patient reports sick contact at home. Patient with no -related complaints. Exam consistent with sinusitis Will send testing for flu, COVID, RSV Differential Diagnosis Differential Diagnoses: The differential diagnosis associated with the presentation includes Viral syndrome, sinusitis, influenza Lab Data MDM Lab Attestation statement: I reviewed the patient's lab results. Labs: Lab Results 07/15/22 Range/Units 11:54 Influenza Type A (PCR) NEGATIVE (Negative) Influenza Type B (PCR) NEGATIVE (Negative) RSV RNA Qual (PCR) NEGATIVE (Negative) SARS-CoV-2 RNA (RT-PCR) NEGATIVE (Negative) Discharge Plan Discharge Clinical Impression: Sinusitis Patient Disposition: Home, Self-Care Instructions: Sinusitis (ED) Additional Instructions: Las pruebas de gripe, COVID, RSV son negativas. [place] Tylenol solo para el dolor. [place] los antibi?ticos seg?n lo prescrito Prescriptions: New amoxicillin 500 mg capsule 500 mg PO BID Qty: 20 0RF No Action oxycodone-acetaminophen [Endocet] 5-325 mg tablet 1 tab PO Q6H PRN (Reason: pain (scale score 7-10)) Qty: 14 0RF ondansetron 4 mg tablet,disintegrating 4 mg PO Q8H PRN (Reason: nausea and vomiting) Qty: 20 0RF Referrals: Physician,None [Primary Care Provider] - Interventions: ED Discharge Assessment Last Done: 07/15/22 13:54 Discharge Date/Time: 07/15/22 13:55 Print Language: Gabonese
[2022-07-15 12:44] LABS: Influenza A PCR NEGATIVE (Negative); Influenza B PCR NEGATIVE (Negative); Resp Syncy Virus RNA Qual PCR NEGATIVE (Negative); SARS COV2 PCR INHOUSE NEGATIVE (Negative)
== END 2022-07-15 13:55 | disposition home or self-care (01) ==
PROVIDERS: Nurse Practitioner Family; Emergency Provider Emergency Medicine
DX: O24.419 Gestational diabetes mellitus in pregnancy, unspecified control (principal); Z3A.29 29 weeks gestation of pregnancy; R06.02 Shortness of breath; J32.9 Chronic sinusitis, unspecified; Z20.822 Contact with and (suspected) exposure to COVID-19; Z20.828 Contact with and (suspected) exposure to other viral communicable diseases
CPT/HCPCS: 0241U; 99282; 99283

== ENCOUNTER 2024-03-24 09:14 | Emergency (ER) | payer OTHER, SELFPAY ==
[2024-03-24 09:32] VITALS: BP 99/62; PULSE 96; RESP 16; TEMP 36.7; O2SAT 98; BMI 33.7
--- NOTE | 2024-03-24 10:56 | ED.URI ---
HPI - URI/Sore Throat General Chief Complaint: Upper Respiratory Symptoms Stated Complaint: Sore throat Time Seen by Provider: 03/24/24 10:48 Source: patient Mode of arrival: ambulatory Limitations: no limitations History of Present Illness ED Provider: Charleen Bourne PA-C HPI Narrative: 33 yo Female with no significant medical history presents to the ER for evaluation of sore throat, painful swallowing, bright ear pain for the last 2 weeks. Patient states she has had a mild cough, no fevers or chills. She reports the sore throat is worse when she eats and drinks, but she has been able to tolerate normal p.o.. She reports the ear pain has been worsening for the last several days. No hearing loss or drainage. No known sick contacts. MD elicited complaint: sore throat Onset (ago): week(s) Consistency: progressively worsening Severity: moderate Description of mucous: clear Able to tolerate fluids by mouth: Yes Relieving factors: nothing Associated symptoms: nasal congestion, sore throat and cough Treatments prior to arrival: none Related Data Previous Rx's ?Medication ?Instructions ?Recorded ondansetron 4 mg disintegrating 4 mg PO Q8H PRN nausea and 07/12/21 tablet vomiting #20 tabs oxycodone-acetaminophen 5 mg-325 1 tab PO Q6H PRN pain (scale score 07/12/21 mg tablet (Endocet) 7-10) #14 tabs amoxicillin 500 mg capsule 500 mg PO BID #20 caps 07/15/22 amoxicillin 875 mg-potassium 1 tab PO BID #14 tabs 03/24/24 clavulanate 125 mg tablet Allergies Allergy/AdvReac Type Severity Reaction Status Date / Time No Known Allergies Allergy Verified 03/24/24 09:34 Review of Systems Review of Systems: Yes all other systems are reviewed and are negative [facility] Past Medical History Surgical History Hx of colonoscopy S/P laparoscopic cholecystectomy Social History Social History Household Members: Significant Other Housing: Apartment Do you presently have visiting nurse or other home services: No Alcohol intake: never Patient Tobacco Use Status: Never used Tobacco Advance Directives: No Advance Directives Information Provided: Yes service: No Current occupational status: unemployed Physical Exam Vital Signs: Vital Signs: Last Vital Signs Temp 97.9 F 03/24/24 11:22 Pulse 80 03/24/24 11:22 Resp 13 03/24/24 11:22 BP 107/60 03/24/24 11:22 Pulse Ox 96 03/24/24 11:22 O2 Del Method Room Air 03/24/24 11:22 BMI result Body Mass Index 33.7 Appearance: Alert. Oriented X3. No acute distress. Head: normocephalic, atraumatic. Eyes: Pupils equal, round and reactive to light. ENT: Pharynx with [id number] generalized erythema without any No tonsillar swelling or exudate. right TM with erythema and effusion, no perforation. partially obstructed EAC w/ cerumen on the left, visualized TM is normal. Neck: Normal inspection. Neck supple. anterior cervical LAD on the right CVS: Normal heart rate and rhythm. Pulses normal. Respiratory: No respiratory distress. Breath sounds normal. Skin: Skin warm and dry. Normal skin color. Normal skin turgor. No rashes. Extremities: No lower extremity edema. No joint swelling. Neuro/psych: Oriented X 3. grossly normal, nonfocal. Normal speech and cognition. Medical Decision Making Medical Decision Making [facility] Narrative: 33 yo female presenting with sore throat and right ear pain x2 weeks. VSS here. she appears well. strep test is negative. no evidence of tonsillitis or [employer] her exam is c/w acute otitis media on the right will treat with oral abx. stable for d/c home Differential Diagnosis Differential Diagnoses: The differential diagnosis associated with the presentation includes strep, covid, flu, rsv, other viral syndrome, bronchitis, pneumonia, AOM, no evidence of peritonsillar abcsess or retropharyngeal abscess Lab Data [facility] Lab Attestation statement: I reviewed the patient's lab results. Labs: Lab Results 03/24/24 Range/Units 11:07 S. pyogenes GrpA SANDY Negative (Negative) Tests considered The following testing was considered but not selected: considered chest x-ray, lung sounds normal, low suspicion for pna Prescription Management I considered prescription management with: Pain Medication and Antibiotic Critical Care Time Critical Care Time Critical Care Time: No Discharge Plan Discharge Clinical Impression: Otitis media Qualifiers: Otitis media type: unspecified Chronicity: acute Qualified Code(s): H66.90 - Otitis media, unspecified, unspecified ear Patient Disposition: Home, Self-Care Instructions: Ear Infection (ED) Additional Instructions: you tested negative for strep throat you have an ear infection Take the prescribed antibiotics as directed, complete the entire course and do not miss any doses use warm salt water gargles 3x per day and use over the counter chloraseptic spray we needed for sore throat take motrin and tylenol as needed for pain If you develop new or worsening symptoms call 911 or come back to the ER for further evaluation. Prescriptions: New amoxicillin-pot clavulanate 875-125 mg tablet 1 tab PO BID Qty: 14 0RF No Action oxycodone-acetaminophen [Endocet] 5-325 mg tablet 1 tab PO Q6H PRN (Reason: pain (scale score 7-10)) Qty: 14 0RF ondansetron 4 mg tablet,disintegrating 4 mg PO Q8H PRN (Reason: nausea and vomiting) Qty: 20 0RF amoxicillin 500 mg capsule 500 mg PO BID Qty: 20 0RF Print Language: Korean
[2024-03-24 11:22] VITALS: BP 107/60; PULSE 80; RESP 13; TEMP 36.6; O2SAT 96
[2024-03-24 11:33] LABS: IDNOW Serial# 08D9AD1C; Strep A Nucleic Acid Negative (Negative)
[2024-03-24 11:57] VITALS: BP 107/60; PULSE 80; RESP 13; TEMP 36.6; O2SAT 96
== END 2024-03-24 12:01 | disposition home or self-care (01) ==
PROVIDERS: Emergency Provider Emergency Medicine Emergency Medical Services
DX: H66.91 Otitis media, unspecified, right ear (principal); J02.9 Acute pharyngitis, unspecified; Z79.899 Other long term (current) drug therapy
CPT/HCPCS: 87651; 99283